=== PATIENT | female | born 1975 | race Caucasian/White ===

== ENCOUNTER → 2019-10-22 13:23 | Outpatient (BNVA) | payer OTHER, SELFPAY | PROVIDERS: Family Provider Nurse Practitioner; PCP Nurse Practitioner; Visit Provider Psychiatry & Neurology Psychiatry | DX: F43.12 Post-traumatic stress disorder, chronic (principal); F12.20 Cannabis dependence, uncomplicated; F33.2 Major depressive disorder, recurrent severe without psychotic features | CPT/HCPCS: 99204 ==

== ENCOUNTER → 2019-12-21 12:33 | Outpatient (BNVA) | payer OTHER, SELFPAY | PROVIDERS: Family Provider Nurse Practitioner; PCP Nurse Practitioner; Visit Provider Counselor Professional | DX: F43.12 Post-traumatic stress disorder, chronic (principal); F33.2 Major depressive disorder, recurrent severe without psychotic features | CPT/HCPCS: 90834 ==

== ENCOUNTER → 2019-12-28 10:05 | Outpatient (BNVA) | payer OTHER, SELFPAY | PROVIDERS: Family Provider Nurse Practitioner; PCP Nurse Practitioner; Visit Provider Counselor Professional | DX: F33.2 Major depressive disorder, recurrent severe without psychotic features (principal); F43.12 Post-traumatic stress disorder, chronic; F12.20 Cannabis dependence, uncomplicated | CPT/HCPCS: 90834 ==

== ENCOUNTER → 2020-01-11 08:08 | Outpatient (BNVA) | payer OTHER, SELFPAY | PROVIDERS: Family Provider Nurse Practitioner; PCP Nurse Practitioner; Visit Provider Counselor Professional | DX: F43.12 Post-traumatic stress disorder, chronic (principal); F12.20 Cannabis dependence, uncomplicated; F33.2 Major depressive disorder, recurrent severe without psychotic features | CPT/HCPCS: 90834 ==

== ENCOUNTER → 2020-01-14 08:23 | Outpatient (BNVA) | payer OTHER, SELFPAY | PROVIDERS: Family Provider Nurse Practitioner; PCP Nurse Practitioner; Visit Provider Psychiatry & Neurology Psychiatry | DX: F43.12 Post-traumatic stress disorder, chronic (principal); F12.20 Cannabis dependence, uncomplicated; F33.2 Major depressive disorder, recurrent severe without psychotic features; F41.1 Generalized anxiety disorder | CPT/HCPCS: 99213 ==

== ENCOUNTER → 2020-01-16 08:30 | Outpatient (BNVA) | payer OTHER, SELFPAY | PROVIDERS: Family Provider Nurse Practitioner; PCP Nurse Practitioner; Visit Provider Counselor Professional | DX: F43.12 Post-traumatic stress disorder, chronic (principal); F12.20 Cannabis dependence, uncomplicated | CPT/HCPCS: 90834 ==

== ENCOUNTER → 2020-01-21 11:53 | Outpatient (BNVA) | payer OTHER, SELFPAY | PROVIDERS: Family Provider Nurse Practitioner; PCP Nurse Practitioner; Visit Provider Nurse Practitioner Family | DX: R05 Cough (principal); J01.40 Acute pansinusitis, unspecified | CPT/HCPCS: 87071; 87400; 87880 ==

== ENCOUNTER → 2020-01-25 07:43 | Outpatient (BNVA) | payer OTHER, SELFPAY | PROVIDERS: Family Provider Nurse Practitioner; PCP Nurse Practitioner; Visit Provider Counselor Professional | DX: F43.12 Post-traumatic stress disorder, chronic (principal); F33.2 Major depressive disorder, recurrent severe without psychotic features; F12.20 Cannabis dependence, uncomplicated | CPT/HCPCS: 90834 ==

== ENCOUNTER → 2020-02-05 08:53 | Outpatient (BNVA) | payer OTHER, SELFPAY | PROVIDERS: Family Provider Nurse Practitioner; PCP Nurse Practitioner; Visit Provider Counselor Professional | DX: F33.2 Major depressive disorder, recurrent severe without psychotic features (principal); F43.12 Post-traumatic stress disorder, chronic | CPT/HCPCS: 90834 ==

== ENCOUNTER → 2020-02-12 08:37 | Outpatient (BNVA) | payer OTHER, SELFPAY | PROVIDERS: Family Provider Nurse Practitioner; PCP Nurse Practitioner; Visit Provider Counselor Professional | DX: F43.12 Post-traumatic stress disorder, chronic (principal) | CPT/HCPCS: 90834 ==

== ENCOUNTER → 2020-02-25 07:46 | Outpatient (BNVA) | payer OTHER, SELFPAY | PROVIDERS: Family Provider Nurse Practitioner; PCP Nurse Practitioner; Visit Provider Psychiatry & Neurology Psychiatry | DX: F43.12 Post-traumatic stress disorder, chronic (principal); F12.20 Cannabis dependence, uncomplicated; F33.2 Major depressive disorder, recurrent severe without psychotic features | CPT/HCPCS: 99214 ==

== ENCOUNTER → 2020-03-12 08:01 | Outpatient (BNVA) | payer OTHER, SELFPAY | PROVIDERS: Family Provider Nurse Practitioner; PCP Nurse Practitioner; Visit Provider Counselor Professional | DX: F33.2 Major depressive disorder, recurrent severe without psychotic features (principal); F43.12 Post-traumatic stress disorder, chronic; F12.20 Cannabis dependence, uncomplicated | CPT/HCPCS: 90834 ==

== ENCOUNTER → 2020-05-07 09:06 | Outpatient (BNVA) | payer OTHER, SELFPAY | PROVIDERS: Family Provider Nurse Practitioner; PCP Nurse Practitioner; Visit Provider Counselor Professional | DX: F43.12 Post-traumatic stress disorder, chronic (principal); F12.20 Cannabis dependence, uncomplicated | CPT/HCPCS: 90834 ==

== ENCOUNTER → 2020-05-23 09:35 | Outpatient (BNVA) | payer OTHER, SELFPAY | PROVIDERS: Family Provider Nurse Practitioner; PCP Nurse Practitioner; Visit Provider Counselor Professional | DX: F12.20 Cannabis dependence, uncomplicated (principal); F43.12 Post-traumatic stress disorder, chronic | CPT/HCPCS: 90832 ==

== ENCOUNTER → 2020-05-30 09:19 | Outpatient (BNVA) | payer OTHER, SELFPAY | PROVIDERS: Family Provider Nurse Practitioner; PCP Nurse Practitioner; Visit Provider Psychiatry & Neurology Psychiatry | DX: F43.12 Post-traumatic stress disorder, chronic (principal); F12.20 Cannabis dependence, uncomplicated; F33.2 Major depressive disorder, recurrent severe without psychotic features; F41.1 Generalized anxiety disorder | CPT/HCPCS: 99213 ==

== ENCOUNTER → 2020-06-23 08:54 | Outpatient (BNVA) | payer OTHER, SELFPAY | PROVIDERS: Family Provider Nurse Practitioner; PCP Nurse Practitioner; Visit Provider Counselor Professional | DX: F43.12 Post-traumatic stress disorder, chronic (principal); F12.20 Cannabis dependence, uncomplicated | CPT/HCPCS: 90834 ==

== ENCOUNTER → 2020-09-08 07:44 | Outpatient (BNVA) | payer OTHER, SELFPAY | PROVIDERS: PCP Nurse Practitioner; Visit Provider Counselor Professional | DX: F43.12 Post-traumatic stress disorder, chronic (principal); F33.2 Major depressive disorder, recurrent severe without psychotic features | CPT/HCPCS: 90834 ==

== ENCOUNTER → 2020-09-30 07:45 | Outpatient (BNVA) | payer OTHER, SELFPAY | PROVIDERS: PCP Nurse Practitioner; Visit Provider Psychiatry & Neurology Psychiatry | DX: F33.2 Major depressive disorder, recurrent severe without psychotic features (principal); F12.20 Cannabis dependence, uncomplicated; F43.12 Post-traumatic stress disorder, chronic | CPT/HCPCS: 99213 ==

== ENCOUNTER → 2020-10-01 09:27 | Outpatient (BNVA) | payer OTHER, SELFPAY | PROVIDERS: PCP Nurse Practitioner; Visit Provider Counselor Professional | DX: F43.12 Post-traumatic stress disorder, chronic (principal); F33.2 Major depressive disorder, recurrent severe without psychotic features; F12.20 Cannabis dependence, uncomplicated | CPT/HCPCS: 90834 ==

== ENCOUNTER → 2020-10-02 08:59 | Outpatient (BNVA) | payer OTHER, SELFPAY | PROVIDERS: PCP Nurse Practitioner; Visit Provider Specialist | DX: M50.020 Cervical disc disorder with myelopathy, mid-cervical region, unspecified level (principal); G43.711 Chronic migraine without aura, intractable, with status migrainosus; J44.9 Chronic obstructive pulmonary disease, unspecified; F17.210 Nicotine dependence, cigarettes, uncomplicated | CPT/HCPCS: 64615; 99213; J0585 ==

== ENCOUNTER → 2020-10-15 08:59 | Outpatient (BNVA) | payer OTHER, SELFPAY | PROVIDERS: PCP Nurse Practitioner; Visit Provider Counselor Professional | DX: F43.12 Post-traumatic stress disorder, chronic (principal); F12.20 Cannabis dependence, uncomplicated | CPT/HCPCS: 90834 ==

== ENCOUNTER → 2020-11-11 07:26 | Outpatient (BNVA) | payer OTHER, SELFPAY | PROVIDERS: PCP Nurse Practitioner; Visit Provider Psychiatry & Neurology Psychiatry | DX: F33.2 Major depressive disorder, recurrent severe without psychotic features (principal); F43.12 Post-traumatic stress disorder, chronic; F12.20 Cannabis dependence, uncomplicated | CPT/HCPCS: 99213 ==

== ENCOUNTER 2020-11-11 08:43 | Outpatient (CLI) | payer OTHER, SELFPAY ==
--- NOTE | 2020-11-11 08:48 | MM_ITS ---
WS: [id number] SCREENING DIGITAL MAMMOGRAM WITH CAD HISTORY: SCREENING COMPARISON: 03/28/2019 and 12/19/2017 and 03/11/2010 Bilateral CC and MLO views submitted. Computer aided detection analyzed. Breast composition: There are scattered areas of fibroglandular density. No suspicious masses, microc alcifications or architectural distortion. Benign calcifications in each breast. MM/[place] [id number] IMPRESSION: BI-RADS: 2-Benign FOLLOW UP: 1 Year Follow-up
== END 2020-11-11 08:44 | disposition home or self-care (01) ==
LOC: RADSHAW 08:45
PROVIDERS: PCP Nurse Practitioner; Visit Provider Nurse Practitioner
DX: Z12.31 Encounter for screening mammogram for malignant neoplasm of breast (principal)
CPT/HCPCS: 77067

== ENCOUNTER → 2020-11-19 08:33 | Outpatient (BNVA) | payer OTHER, SELFPAY | PROVIDERS: PCP Nurse Practitioner; Visit Provider Counselor Professional | DX: F43.12 Post-traumatic stress disorder, chronic (principal); F12.20 Cannabis dependence, uncomplicated; F33.2 Major depressive disorder, recurrent severe without psychotic features | CPT/HCPCS: 90834 ==

== ENCOUNTER → 2020-12-10 08:31 | Outpatient (BNVA) | payer OTHER, SELFPAY | PROVIDERS: PCP Nurse Practitioner; Visit Provider Counselor Professional | DX: F43.12 Post-traumatic stress disorder, chronic (principal); F12.20 Cannabis dependence, uncomplicated | CPT/HCPCS: 90834 ==

== ENCOUNTER → 2021-01-06 09:43 | Outpatient (BNVA) | payer OTHER, SELFPAY | PROVIDERS: PCP Nurse Practitioner; Visit Provider Counselor Professional | DX: F43.12 Post-traumatic stress disorder, chronic (principal); F12.20 Cannabis dependence, uncomplicated | CPT/HCPCS: 90834 ==

== ENCOUNTER → 2021-01-08 09:58 | Outpatient (BNVA) | payer OTHER, SELFPAY | PROVIDERS: PCP Nurse Practitioner; Visit Provider Specialist | DX: G43.711 Chronic migraine without aura, intractable, with status migrainosus (principal); F17.210 Nicotine dependence, cigarettes, uncomplicated | CPT/HCPCS: 64615; J0585 ==

== ENCOUNTER → 2021-01-12 11:01 | Outpatient (BNVA) | payer OTHER, SELFPAY | PROVIDERS: PCP Nurse Practitioner; Visit Provider Counselor Professional | DX: F43.12 Post-traumatic stress disorder, chronic (principal) | CPT/HCPCS: 90834 ==

== ENCOUNTER → 2021-02-06 09:41 | Outpatient (BNVA) | payer OTHER, SELFPAY | PROVIDERS: PCP Nurse Practitioner; Visit Provider Psychiatry & Neurology Psychiatry | DX: F43.12 Post-traumatic stress disorder, chronic (principal); F12.20 Cannabis dependence, uncomplicated; F33.2 Major depressive disorder, recurrent severe without psychotic features | CPT/HCPCS: 99213 ==

== ENCOUNTER → 2021-04-20 14:35 | Outpatient (BNVA) | payer OTHER, SELFPAY | PROVIDERS: PCP Nurse Practitioner; Referring Provider Nurse Practitioner; Visit Provider Nurse Practitioner Family | DX: N31.9 Neuromuscular dysfunction of bladder, unspecified (principal); N39.46 Mixed incontinence; Z87.440 Personal history of urinary (tract) infections | CPT/HCPCS: 81003 ==

== ENCOUNTER → 2021-05-26 13:48 | Outpatient (BNVA) | payer OTHER, SELFPAY | PROVIDERS: PCP Nurse Practitioner; Visit Provider Nurse Practitioner Family | DX: Z87.440 Personal history of urinary (tract) infections (principal); N39.46 Mixed incontinence; N39.0 Urinary tract infection, site not specified | CPT/HCPCS: 81003; 87077; 87086; 87184 ==

== ENCOUNTER → 2021-05-28 11:36 | Outpatient (BNVA) | payer OTHER, SELFPAY | PROVIDERS: PCP Nurse Practitioner; Visit Provider Specialist | DX: G43.711 Chronic migraine without aura, intractable, with status migrainosus (principal) | CPT/HCPCS: 64615; J0585 ==

== ENCOUNTER → 2021-07-28 10:40 | Outpatient (BNVA) | payer OTHER, SELFPAY | PROVIDERS: PCP Nurse Practitioner; Visit Provider Psychiatry & Neurology Psychiatry | DX: F33.2 Major depressive disorder, recurrent severe without psychotic features (principal); F12.20 Cannabis dependence, uncomplicated; F43.12 Post-traumatic stress disorder, chronic; F41.1 Generalized anxiety disorder | CPT/HCPCS: 99214 ==

== ENCOUNTER 2021-08-06 23:57 | Emergency (ER) | payer OTHER, MEDICARE, SELFPAY ==
[2021-08-07 00:08] VITALS: RESP 16; TEMP 36.6; BMI 33.8
[2021-08-07 00:17] VITALS: BP 87/54; PULSE 89; RESP 18; O2SAT 88
--- NOTE | 2021-08-07 00:34 | XRR_ITS ---
PROCEDURE INFORMATION: Exam: XR Chest Exam date and time: 08/07/2021 12:34 AM Age: 46 years old Clinical indication: Other: Syncope; Prior surgery; Surgery type: Stimulator; Additional info: Syncopal episode TECHNIQUE: Imaging protocol: XR of the chest. Views: 1 view. COMPARISON: CR Chest 1 [place] [id number] 06/28/2019 8:27 PM FINDINGS: Tubes, catheters and devices: Spinal cord stimulator leads overlie the thoracic spine. Lungs: Unremarkable. No consolidation. Pleural spaces: Unremarkable. No pleural effusion. No pneumothorax. Heart/Mediastinum: Unremarkable. No cardiomegaly. Bones/joints: Unremarkable. XR/XR chest 1V portable [id number] IMPRESSION: No acute disease. Radiation Dose CTDIVOL = (mGy): DLP = (mGy-cm)
--- NOTE | 2021-08-07 00:34 | CTR_ITS ---
PROCEDURE INFORMATION: Exam: CT Head Without Contrast Exam date and time: 08/07/2021 12:34 AM Age: 46 years old Clinical indication: Syncope and collapse; Patient HX: Syncopal episode. Lethargy. Unable to remove earrings. TECHNIQUE: Imaging protocol: Computed tomography of the head without contrast. Radiation optimization: All CT scans at this facility use at least one of these dose optimization techniques: automated exposure control; mA and/or kV adjustment per patient size (includes targeted exams where dose is matched to clinical indication); or iterative reconstruction. COMPARISON: MRI Head w/wo* [id number] 06/17/2017 2:44 PM RADIATION DOSE METRICS: Total DLP (mGy-cm): 898.43 FINDINGS: Brain: No acute infarct or hemorrhage. Cerebral ventricles: No ventriculomegaly. Paranasal sinuses: There is a left maxillary sinus mucous retention cyst. Mastoid air cells: Visualized mastoid air cells are clear. Bones/joints: No calvarial or skull base fracture. Soft tissues: Unremarkable. Other findings: The examination is limited by patient motion. CT/CT head wo con* [id number] IMPRESSION: 1. The examination is limited by patient motion. 2. No acute infarct or hemorrhage. 3. No calvarial or skull base fracture. Radiation Dose CTDIVOL = (mGy): DLP = 898.43 (mGy-cm)
--- NOTE | 2021-08-07 00:36 | W.ED.GENADLT ---
Documented by User: AKUA Sinclair 08/07/21 03:29 HPI - General Adult General: Chief complaint: General Medical Stated complaint: CANT STAY AWAKE Time Seen by Provider: 08/07/21 00:17 History of Present Illness: HPI narrative: Patient is a 46-year-old female comes to the ED with syncopal episode. Past medical history of COPD, migraines and GERD. Patient is not on any oxygen at home. Tonight patient says she was standing doing some dishes and she started to feel real dizzy and then had a syncopal episode. Friend was present and actually helped patient down to the ground so she did not fall. No head trauma occurred during syncopal episode. Patient says she was able to hear her friend talking to her while she was having her syncopal episode. She did not have any convulsions, but did have some bladder incontinence during episode. She reports feeling really tired now. This is the third syncopal episode patient has had in the last 2 months. She had one approximately 6 weeks ago and another one that was similar a couple weeks ago. Denies any chest pain but does endorse some shortness of breath during episodes. She currently has a headache that feels similar to her migraines. Denies any fever, chills chest pain, nausea/vomiting, abdominal pain, bladder or bowel symptoms. Patient was recently put on an antibiotic to treat a UTI. Patient is a daily smoker. Associated symptoms: Reports dyspnea (episodic during syncopal episode), headache(s) and syncope; Deny chest pain, nausea, rash, palpitations or vomiting Review of Systems Const: Reports: fatigue; Denies: fever(s) or chills Eyes: Denies: change in vision or eye discomfort ENMT: Denies: throat pain, odynophagia, nasal discharge or nasal congestion Card: Reports: syncope; Denies: chest pain, palpitations, edema, swelling of feet/ankles, dyspnea on exertion or orthopnea Resp: Reports: dyspnea (episodic during syncopal episode); Denies: productive cough or non-productive cough GI: Denies: abdominal pain, nausea, vomiting, diarrhea, constipation or hematochezia : Denies: flank pain, dysuria or hematuria Musc: Denies: neck pain, back pain or extremity swelling Skin/Breast: Denies: rash or new lesions Neuro: Reports: headache(s); Denies: numbness in extremities or weakness in extremities PFSH ED PFSH: Medical History Cancer Cervical disc disorder with myelopathy of mid-cervical region COPD (chronic obstructive pulmonary disease) DDD (degenerative disc disease) DJD (degenerative joint disease) Mixed stress and urge urinary incontinence Psychiatric care Recurrent UTI Spondylolisthesis, acquired Surgical History History of appendectomy History of foot surgery Left foot. Five (5) surgeries. History of hysterectomy Family History Grandmother Cancer Father , IN HIS 50'S Hypertension Mother , AT 42 Heart disease Psychiatric illness CHF (congestive heart failure) Brother Heart disease Social History Alcohol intake: never Marital status: Legally Current occupational status: retired and disabled History of recent travel: No Physical Exam Const: COMMON NORMALS: patient oriented x3 and alert GENERAL APPEARANCE: cooperative, comfortable and lethargic ORIENTATION/CONSCIOUSNESS: Yes lethargic HENMT: COMMON NORMALS: normocephalic HEAD & SCALP: normocephalic MOUTH: Normal oral and palatal mucosa present THROAT: posterior oropharynx normal and uvula midline Eye: COMMON NORMALS: Equal, round and reactive pupils present, EOMs intact bilaterally and conjunctivae normal CONJUNCTIVA: Yes conjunctivae normal PUPIL: Yes Equal, round and reactive pupils present Neck/C-Spine: COMMON NORMALS: supple GENERAL: Yes normal visual inspection Resp: COMMON NORMALS: normal respiratory effort, No retractions, No use of accessory muscles and clear to auscultation bilaterally AUSCULTATION: clear to auscultation bilaterally Cardio: COMMON NORMALS: regular rate, regular rhythm, S1 normal heart sound present, S2 normal heart sound present, No gallops present (Cardio), No clicks present (Cardio), No murmurs present (Cardio) and Peripheral pulses 2+ throughout RATE: regular rate RHYTHM: regular rhythm HEART SOUNDS: S1 normal heart sound present and S2 normal heart sound present PERIPHERAL PULSES: Peripheral pulses 2+ throughout GI: COMMON NORMALS: Normal to inspection, nondistended, normoactive bowel sounds present, Soft to palpation, non-tender and no masses PALPATION: Yes Soft to palpation : COMMON NORMALS: Yes no CVA tenderness BLADDER/KIDNEY EXAM: Yes no CVA tenderness Back/Pelvis: COMMON NORMALS: no CVA tenderness Extremity: COMMON NORMALS: normal to inspection Neuro: COMMON NORMALS: patient oriented x3, CN's II-XII intact bilaterally and moves all extremities SENSORIUM/ORIENTATION: Yes alert and Yes lethargic Skin: GENERAL SKIN EXAM: dry skin Course ED course: I went in and talked with patient about some of the lab findings and the elevated carboxyhemoglobin lab. Patient's sister is present and she lives in the same house this patient. Sister has not had any symptoms such as headache, dizziness, confusion, loss of consciousness, shortness of breath, nausea/vomiting. I recommended that sister checks to see if they have a carbon monoxide detector at home and if they do not for her to purchase want to install on home. Vital Signs: Vital signs: Vital Signs Temperature 97.9 F 08/07/21 00:08 Pulse Rate 89 08/07/21 00:17 Respiratory Rate 18 08/07/21 00:17 Blood Pressure 114/72 08/07/21 03:32 Pulse Oximetry 88 L 08/07/21 00:17 MDM - General Adult MDM Narrative: Medical decision making narrative: Patient is a 46-year-old female comes to the ED with syncopal episode and tired/lethargic post syncopal episode. I performed the initial history physical exam and lab work-up. I talked with Dr. Matamoros about patient case and he will be taking over patient case since I am at end of my shift. He is aware of patient's elevated carboxyhemoglobin level and that I discussed with the patient and sister about risk of car monoxide poisoning and sister who lives at the house does not have any symptoms. Home O2 eval ordered and pending. Dr. Matamoros accepted further management care of patient. Lab Data: Attestation: I reviewed the patient's lab results. Labs: Lab Results 08/06/21 08/06/21 08/06/21 23:03 23:03 23:03 WBC 11.5 10^3/uL H 10 ^3/uL (4.0-10.0) RBC 4.33 10^6/uL 10^6 /uL (4.1-5.3) Hgb 12.9 g/dL g/dL (11.5-15.3) Hct 38.9 % % (37.0-47.0) MCV 89.8 fl fl (81-99) MCH 29.8 pg pg (28.0-34.0) MCHC 33.2 g/dL g/dL (30.0-36.0) RDW 12.9 % % (12.1-15.1) Plt Count 305 10^3/cmm 10^3 /cmm (130-400) MPV 9.2 fL fL (7.4-10.4) Neut % (Auto) 60.6 % % Lymph % (Auto) 30.1 % % [place] % (Auto) 4.9 % % Eos % (Auto) 3.4 % % Baso % (Auto) 0.8 % % Neut # (Auto) 7.00 10^3/uL 10^3 /uL (1.8-7.7) Lymph # (Auto) 3.5 10^3/uL 10^3/ uL (0.8-4.8) [place] # (Auto) 0.6 10^3/uL 10^3/ uL (0.2-0.9) Eos # (Auto) 0.4 10^3/uL 10^3/ uL (0.0-0.8) Baso # (Auto) 0.1 10^3/uL 10^3/ uL (0.0-0.1) Nucleated RBC % (a uto) 0 % % Nucleated RBCs # 0.0 /100WBC /100W BC Specimen Type Sample Site ABG pH ABG pCO2 ABG pO2 ABG HCO3 ABG O2 Saturation ABG Base Excess Kavon Test A-a O2 Gradient Hematocrit Hgb O2 Saturation Carboxyhemoglobin Methemoglobin Total Hemoglobin Ionized Calcium O2 Delivery Device O2 Liters/Min FiO2 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 Welfare Services ID Sodium 137 mmol/L mmol/L (136-145) Potassium 3.2 mmol/L L mmol /L (3.5-5.1) Chloride 96 mmol/L L mmol/ L (98-107) Carbon Dioxide 24 mmol/L mmol/L (22-29) Anion Gap 20.2 H (5-19) BUN 10 mg/dL mg/dL (6-20) Creatinine 0.8 mg/dL mg/dL (0.5-0.9) GFR Calculation 76.6 mL/min L mL/ min (90-130) Glucose 133 mg/dL H mg/dL (65-115) Calculated Osmolal ity 285 mOsm/kg mOsm/ kg (285-295) Lactic Acid Calcium 8.8 mg/dL mg/dL (8.5-10.5) Total Bilirubin 0.4 mg/dL mg/dL (0.15-1.2) AST 21 U/L U/L (0-32) ALT 26 U/L U/L (0-33) Alkaline Phosphata se 73 IU/L IU/L (35-105) Troponin T Baselin e 7 ng/L ng/L (0-10) Troponin T 120 Min [place] Delta Troponin T Total Protein 6.6 g/dL g/dL (6.6-8.7) Albumin 4.2 g/dL g/dL (3.5-5.2) Globulin 2.4 g/dL g/dL (1.3-4.6) Urine Color Urine Appearance Urine pH Ur Specific Gravit y Urine Protein Urine Glucose (UA) Urine Ketones Urine Blood Urine Nitrate Urine Bilirubin Urine Urobilinogen Ur Leukocyte Donya ase Urine Opiates Scre en Ur Barbiturates Sc reen Ur Phencyclidine S crn Ur Amphetamines Sc reen U Benzodiazepines Scrn Urine Cocaine Scre en U Marijuana (THC) Screen Ethyl Alcohol < 10 mg/dL mg/dL (0-10) 08/07/21 08/07/21 08/07/21 02:04 02:51 02:51 WBC RBC Hgb Hct MCV MCH MCHC RDW Plt Count MPV Neut % (Auto) Lymph % (Auto) [place] % (Auto) Eos % (Auto) Baso % (Auto) Neut # (Auto) Lymph # (Auto) [place] # (Auto) Eos # (Auto) Baso # (Auto) Nucleated RBC % (a uto) Nucleated RBCs # Specimen Type Arterial Sample Site Radial, left ABG pH 7.37 (7.35-7.45) ABG pCO2 49.8 mmHg H mmHg (35-45) ABG pO2 61.5 mmHg L mmHg (80.0-100.0) ABG HCO3 29.0 mmol/L H mmo l/L (22-26) ABG O2 Saturation 93.0 ABG Base Excess 2.9 mmol/L H mmol /L (-2.0-2.0) Kavon Test Pos A-a O2 Gradient 10.5 mmHg H mmHg (5-10) Hematocrit 37.9 % % (37-47) Hgb O2 Saturation 85.5 % L % (95-100) Carboxyhemoglobin 7.4 %THgb %THgb (0.4-20.1) Methemoglobin 0.7 % % (0.4-1.5) Total Hemoglobin 12.4 g/dL g/dL (12-16) Ionized Calcium 1.2 mmol/L mmol/L (1.1-1.4) O2 Delivery Device Nc O2 Liters/Min 2.0 % % FiO2 28.0 % % 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 Welfare Services ID glc Sodium 139.0 mmol/L mmol /L (131-143) Potassium 3.7 mmol/L mmol/L (3.5-5.0) Chloride Carbon Dioxide Anion Gap BUN Creatinine GFR Calculation Glucose 132.0 mg/dL H mg/ dL (70-115) Calculated Osmolal ity Lactic Acid 0.9 mmol/L mmol/L (0.5-2.2) Calcium Total Bilirubin AST ALT Alkaline Phosphata se Troponin T Baselin e Troponin T 120 Min [place] 7.67 ng/L ng/L (0-10) Delta Troponin T 0.67 ABS# ABS# (0-10) Total Protein Albumin Globulin Urine Color Urine Appearance Urine pH Ur Specific Gravit y Urine Protein Urine Glucose (UA) Urine Ketones Urine Blood Urine Nitrate Urine Bilirubin Urine Urobilinogen Ur Leukocyte Donya ase Urine Opiates Scre en Ur Barbiturates Sc reen Ur Phencyclidine S crn Ur Amphetamines Sc reen U Benzodiazepines Scrn Urine Cocaine Scre en U Marijuana (THC) Screen Ethyl Alcohol 08/07/21 08/07/21 03:00 03:00 WBC RBC Hgb Hct MCV MCH MCHC RDW Plt Count MPV Neut % (Auto) Lymph % (Auto) [place] % (Auto) Eos % (Auto) Baso % (Auto) Neut # (Auto) Lymph # (Auto) [place] # (Auto) Eos # (Auto) Baso # (Auto) Nucleated RBC % (a uto) Nucleated RBCs # Specimen Type Sample Site ABG pH ABG pCO2 ABG pO2 ABG HCO3 ABG O2 Saturation ABG Base Excess Kavon Test A-a O2 Gradient Hematocrit Hgb O2 Saturation Carboxyhemoglobin Methemoglobin Total Hemoglobin Ionized Calcium O2 Delivery Device O2 Liters/Min FiO2 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 Welfare Services ID Sodium Potassium Chloride Carbon Dioxide Anion Gap BUN Creatinine GFR Calculation Glucose Calculated Osmolal ity Lactic Acid Calcium Total Bilirubin AST ALT Alkaline Phosphata se Troponin T Baselin e Troponin T 120 Min [place] Delta Troponin T Total Protein Albumin Globulin Urine Color Yellow (Yellow) Urine Appearance Clear (CLEAR) Urine pH 5 (5-7) Ur Specific Gravit y 1.005 (1.005-1.030) Urine Protein Neg (Negative) Urine Glucose (UA) Norm (Normal) Urine Ketones Negative (Negative) Urine Blood Neg (Negative) Urine Nitrate Negative (Negative) Urine Bilirubin Neg (Negative) Urine Urobilinogen Neg mg/dL mg/dL (Negative) Ur Leukocyte Donya ase Negative (Negative) Urine Opiates Scre en Negative ng/mL ng /mL (Negative) Ur Barbiturates Sc reen Negative ng/mL ng /mL (Negative) Ur Phencyclidine S crn Negative ng/mL ng /mL (Negative) Ur Amphetamines Sc reen Negative ng/mL ng /mL (Negative) U Benzodiazepines Scrn Negative ng/mL ng /mL (Negative) Urine Cocaine Scre en Negative ng/mL ng /mL (Negative) U Marijuana (THC) Screen Positive ng/mL H ng/mL (Negative) Ethyl Alcohol Imaging Data^: CT Head: Attestation: I personally reviewed and interpreted this imaging study as follows: Radiologist's impression: [address] [address] [address] Scan Report Signed Patient: Keyanna Thomas Unit #: [id number] : 1975 Age/Sex: 46 / F ADM Date: 08/06/21 Loc: ER Room/Bed: Attending Dr: Ordering Provider/Ordering MD: Gilmer Zurita Date of Service: 08/07/21 Procedure(s): CT head wo con* [id number] Accession Number(s): [id number] Report Number: [id number] PROCEDURE INFORMATION: Exam: CT Head Without Contrast Exam date and time: 08/07/2021 12:34 AM Age: 46 years old Clinical indication: Syncope and collapse; Patient HX: Syncopal episode. Lethargy. Unable to remove earrings. TECHNIQUE: Imaging protocol: Computed tomography of the head without contrast. Radiation optimization: All CT scans at this facility use at least one of these dose optimization techniques: automated exposure control; mA and/or kV adjustment per patient size (includes targeted exams where dose is matched to clinical indication); or iterative reconstruction. COMPARISON: MRI Head w/wo* [id number] 06/17/2017 2:44 PM RADIATION DOSE METRICS: Total DLP (mGy-cm): 898.43 FINDINGS: Brain: No acute infarct or hemorrhage. Cerebral ventricles: No ventriculomegaly. Paranasal sinuses: There is a left maxillary sinus mucous retention cyst. Mastoid air cells: Visualized mastoid air cells are clear. Bones/joints: No calvarial or skull base fracture. Soft tissues: Unremarkable. Other findings: The examination is limited by patient motion. CT/CT head wo con* [id number] IMPRESSION: 1. The examination is limited by patient motion. 2. No acute infarct or hemorrhage. 3. No calvarial or skull base fracture. Radiation Dose CTDIVOL = (mGy): DLP = 898.43 (mGy-cm) Dictated By: Alvino Fofana Signed By: Alvino Fofana Signed Date/Time: 08/07/21 0132 DD/ CXR: Attestation: I personally reviewed and interpreted this imaging study as follows: Radiologist's impression: [address] [address] XRay Report Signed Patient: Keyanna Thomas Unit #: [id number] : 1975 Age/Sex: 46 / F ADM Date: 08/06/21 Loc: ER Room/Bed: Attending Dr: Ordering Provider/Ordering MD: Gilmer Zurita Date of Service: 08/07/21 Procedure(s): XR chest 1V portable [id number] Accession Number(s): [id number] Report Number: [id number] PROCEDURE INFORMATION: Exam: XR Chest Exam date and time: 08/07/2021 12:34 AM Age: 46 years old Clinical indication: Other: Syncope; Prior surgery; Surgery type: Stimulator; Additional info: Syncopal episode TECHNIQUE: Imaging protocol: XR of the chest. Views: 1 view. COMPARISON: CR Chest 1 [place] [id number] 06/28/2019 8:27 PM FINDINGS: Tubes, catheters and devices: Spinal cord stimulator leads overlie the thoracic spine. Lungs: Unremarkable. No consolidation. Pleural spaces: Unremarkable. No pleural effusion. No pneumothorax. Heart/Mediastinum: Unremarkable. No cardiomegaly. Bones/joints: Unremarkable. XR/XR chest 1V portable [id number] IMPRESSION: No acute disease. Radiation Dose CTDIVOL = (mGy): DLP = (mGy-cm) Dictated By: Alvino Fofana Signed By: Alvino Fofana Signed Date/Time: 08/07/21129 DD/ EKG Data^: EKG 1: Computer generated interpretation: Chest X-Ray 08/07/21 00:34 IMPRESSION: No acute disease. Radiation Dose CTDIVOL = (mGy): DLP = (mGy-cm) Head CT 08/07/21 00:34 IMPRESSION: 1. The examination is limited by patient motion. 2. No acute infarct or hemorrhage. 3. No calvarial or skull base fracture. Radiation Dose CTDIVOL = (mGy): DLP = 898.43 (mGy-cm) Discharge Plan Discharge Prescriptions: No Action albuterol sulfate 0.63 mg/3 mL solution for nebulization 0.63 mg INHALATION QID PRNRF: 0 albuterol sulfate 90 mcg/actuation aerosol powdr breath activated 2 inh INHALATION Q6H PRNRF: 0 Adult Probiotic 3 billion cell capsule 3,000 mmu cells PO DAILY RF: 0 glucosamine sulfate 500 mg tablet 500 mg PO DAILY RF: 0 B-complex with vitamin C [Super B Complex-Vitamin C] Tablet 1 tab PO DAILY RF: 0 magnesium 250 mg tablet 250 mg PO DAILY RF: 0 omega-3 fatty acids 500 mg capsule 500 mg PO DAILY RF: 0 ascorbic acid (vitamin C) 500 mg capsule, extended release 180 mg PO DAILY RF: 0 biotin 1,000 mcg tablet,chewable 1,000 mcg PO DAILY RF: 0 MCT Oil 14 gram-120 kcal/15 mL oil 15 ml PO DAILY RF: 0 estrada pxid-lhscvpie-lcdtslzng ac 1,000 mg capsule 1 cap PO DAILY RF: 0 rutin 500 mg tablet 500 mg PO DAILY RF: 0 ginseng 100 mg capsule 250 mg PO DAILY RF: 0 medical marijuana See Rx Instructions inhalation .COMPLEX RF: 0 (DME) Spinal cord stimulator 0 .Route .MEDSUPPLY RF: 0 cyanocobalamin (vitamin B-12) 1,000 mcg capsule 1,000 mcg PO DAILY RF: 0 pantoprazole 20 mg tablet,delayed release (DR/EC) 20 mg PO DAILY RF: 0 trospium 20 mg tablet 20 mg PO BID RF: 0 amitriptyline 10 mg tablet 20 mg PO .HS RF: 0 All Day Allergy (cetirizine) 10 mg capsule 10 mg PO .HS RF: 0 cholecalciferol (vitamin D3) 4,000 unit capsule 1,000 unit PO DAILY RF: 0 methocarbamol 500 mg tablet 1,000 mg PO QID RF: 0 meloxicam 7.5 mg tablet 15 mg PO .AM RF: 0 atorvastatin 10 mg tablet 80 mg PO .HS RF: 0 gabapentin 100 mg capsule 1,200 mg PO TID RF: 0 nitrofurantoin monohyd/m-cryst [Macrobid] 100 mg capsule 100 mg PO BID Qty: 28 RF: 2 hydroxyzine HCl 50 mg tablet 50 mg PO QID PRN (Reason: insomnia/anxiety) Qty: 120 RF: 2 buspirone 5 mg tablet 5 mg PO TID Qty: 90 RF: 2 lamotrigine 200 mg tablet 200 mg PO .HS Qty: 30 RF: 2 prazosin 2 mg capsule 4 mg PO .HS Qty: 60 RF: 2 ziprasidone HCl 80 mg capsule 80 mg PO BID Qty: 60 RF: 2 Coding Level of Care Code ED 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 Documented by User: Francine Matamoros MD 08/07/21 04:05 HPI - General Adult General: Chief complaint: General Medical Stated complaint: CANT STAY AWAKE Time Seen by Provider: 08/07/21 00:17 PFS ED PFSH: Medical History Cancer Cervical disc disorder with myelopathy of mid-cervical region COPD (chronic obstructive pulmonary disease) DDD (degenerative disc disease) DJD (degenerative joint disease) Mixed stress and urge urinary incontinence Psychiatric care Recurrent UTI Spondylolisthesis, acquired Surgical History History of appendectomy History of foot surgery Left foot. Five (5) surgeries. History of hysterectomy Family History Grandmother Cancer Father , IN HIS 50'S Hypertension Mother , AT 42 Heart disease Psychiatric illness CHF (congestive heart failure) Brother Heart disease Social History Alcohol intake: never Marital status: Legally Current occupational status: retired and disabled History of recent travel: No Course Vital Signs: Vital signs: Vital Signs Temperature 97.9 F 08/07/21 00:08 Pulse Rate 89 08/07/21 00:17 Respiratory Rate 18 08/07/21 00:17 Blood Pressure 114/72 08/07/21 03:32 Pulse Oximetry 88 L 08/07/21 00:17 MDM - General Adult MDM Narrative: Medical decision making narrative: Her neurological exam is as follwoed Mental status? Awake, alert, and oriented to self, year, month, location, and situation.? Following simple axial and appendicular commands.? Has appropriate fund of knowledge, comprehension, and insight.? Able to recall and understands pertinent aspects of medical history and current treatment status.? ? Language? Speech is fluent without word-finding difficulties.? Intact naming, expression, part time receptionist, and repetition.? ? Cranial nerves? 2,3,4,6: PERRL, EOMI with no nystagmus. 5: Intact sensation to light touch, symmetric? 7: Smile symmetrical, no facial droop.? 8: Hearing grossly intact.? 9,10: Normal palate movement.? 11: Normal strength in trapezius bilaterally 12: Tongue protrudes midline.? ? Motor examination? Normal bulk & tone. Strength as follows (R/L): Delts (5/5), Biceps (5/5), Triceps (5/5), Wrist ext (5/5), hip flexors (5/5), plantarflexors (5/5), dorsiflexors (5/5). ? Sensation? Light Touch: Grossly intact and equal in upper and lower extremities bilaterally? Romberg: Negative.? Distal joint position sense intact ? Coordination? Uupypm-yo-eydb-finger movements intact without dysmetria or past-pointing.? Rapid fingertaps: preserved amplitude without decriment.? No tremor, myoclonus or truncal ataxia.? ? Gait/stance? Steady, normal narrow base gait with appropriate arm swing and turning.? Tandem gait without hesitation or loss of balance. At 4:04am aspiratory therapy came by to do an assessment, patient was observed to be satting greater than 95%. At the present time, patient reports symptomatic improvement after 2 L of fluid. Patient has no risk factor for posterior fossa pathology at this time. No need for CT evaluation. Troponin x2 within normal limit. At the present time, I do not suspect that there is a cardiac causes of patient's lightheadedness. It is unclear why patient had an O2 sat of 88% on 2 L earlier today. However, patient continues to sat persistently greater than 95% on room air currently after period of observation. Disposition: Discharge. Patient counseled regarding diagnostic impression, treatment plan. Patient given ED strict return precautions to return for continuation, worsening, or development of new symptoms. Instructed to f/u w/ PCP regarding symptoms today. Patient verbalized understanding. Lab Data: Labs: Lab Results 08/06/21 08/06/21 08/06/21 23:03 23:03 23:03 WBC 11.5 10^3/uL H 10 ^3/uL (4.0-10.0) RBC 4.33 10^6/uL 10^6 /uL (4.1-5.3) Hgb 12.9 g/dL g/dL (11.5-15.3) Hct 38.9 % % (37.0-47.0) MCV 89.8 fl fl (81-99) MCH 29.8 pg pg (28.0-34.0) MCHC 33.2 g/dL g/dL (30.0-36.0) RDW 12.9 % % (12.1-15.1) Plt Count 305 10^3/cmm 10^3 /cmm (130-400) MPV 9.2 fL fL (7.4-10.4) Neut % (Auto) 60.6 % % Lymph % (Auto) 30.1 % % [place] % (Auto) 4.9 % % Eos % (Auto) 3.4 % % Baso % (Auto) 0.8 % % Neut # (Auto) 7.00 10^3/uL 10^3 /uL (1.8-7.7) Lymph # (Auto) 3.5 10^3/uL 10^3/ uL (0.8-4.8) [place] # (Auto) 0.6 10^3/uL 10^3/ uL (0.2-0.9) Eos # (Auto) 0.4 10^3/uL 10^3/ uL (0.0-0.8) Baso # (Auto) 0.1 10^3/uL 10^3/ uL (0.0-0.1) Nucleated RBC % (a uto) 0 % % Nucleated RBCs # 0.0 /100WBC /100W BC Specimen Type Sample Site ABG pH ABG pCO2 ABG pO2 ABG HCO3 ABG O2 Saturation ABG Base Excess Kavon Test A-a O2 Gradient Hematocrit Hgb O2 Saturation Carboxyhemoglobin Methemoglobin Total Hemoglobin Ionized Calcium O2 Delivery Device O2 Liters/Min FiO2 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 Welfare Services ID Sodium 137 mmol/L mmol/L (136-145) Potassium 3.2 mmol/L L mmol /L (3.5-5.1) Chloride 96 mmol/L L mmol/ L (98-107) Carbon Dioxide 24 mmol/L mmol/L (22-29) Anion Gap 20.2 H (5-19) BUN 10 mg/dL mg/dL (6-20) Creatinine 0.8 mg/dL mg/dL (0.5-0.9) GFR Calculation 76.6 mL/min L mL/ min (90-130) Glucose 133 mg/dL H mg/dL (65-115) Calculated Osmolal ity 285 mOsm/kg mOsm/ kg (285-295) Lactic Acid Calcium 8.8 mg/dL mg/dL (8.5-10.5) Total Bilirubin 0.4 mg/dL mg/dL (0.15-1.2) AST 21 U/L U/L (0-32) ALT 26 U/L U/L (0-33) Alkaline Phosphata se 73 IU/L IU/L (35-105) Troponin T Baselin e 7 ng/L ng/L (0-10) Troponin T 120 Min [place] Delta Troponin T Total Protein 6.6 g/dL g/dL (6.6-8.7) Albumin 4.2 g/dL g/dL (3.5-5.2) Globulin 2.4 g/dL g/dL (1.3-4.6) Urine Color Urine Appearance Urine pH Ur Specific Gravit y Urine Protein Urine Glucose (UA) Urine Ketones Urine Blood Urine Nitrate Urine Bilirubin Urine Urobilinogen Ur Leukocyte Donya ase Urine Opiates Scre en Ur Barbiturates Sc reen Ur Phencyclidine S crn Ur Amphetamines Sc reen U Benzodiazepines Scrn Urine Cocaine Scre en U Marijuana (THC) Screen Ethyl Alcohol < 10 mg/dL mg/dL (0-10) 08/07/21 08/07/21 08/07/21 02:04 02:51 02:51 WBC RBC Hgb Hct MCV MCH MCHC RDW Plt Count MPV Neut % (Auto) Lymph % (Auto) [place] % (Auto) Eos % (Auto) Baso % (Auto) Neut # (Auto) Lymph # (Auto) [place] # (Auto) Eos # (Auto) Baso # (Auto) Nucleated RBC % (a uto) Nucleated RBCs # Specimen Type Arterial Sample Site Radial, left ABG pH 7.37 (7.35-7.45) ABG pCO2 49.8 mmHg H mmHg (35-45) ABG pO2 61.5 mmHg L mmHg (80.0-100.0) ABG HCO3 29.0 mmol/L H mmo l/L (22-26) ABG O2 Saturation 93.0 ABG Base Excess 2.9 mmol/L H mmol /L (-2.0-2.0) Kavon Test Pos A-a O2 Gradient 10.5 mmHg H mmHg (5-10) Hematocrit 37.9 % % (37-47) Hgb O2 Saturation 85.5 % L % (95-100) Carboxyhemoglobin 7.4 %THgb %THgb (0.4-20.1) Methemoglobin 0.7 % % (0.4-1.5) Total Hemoglobin 12.4 g/dL g/dL (12-16) Ionized Calcium 1.2 mmol/L mmol/L (1.1-1.4) O2 Delivery Device Nc O2 Liters/Min 2.0 % % FiO2 28.0 % % 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 Welfare Services ID glc Sodium 139.0 mmol/L mmol /L (131-143) Potassium 3.7 mmol/L mmol/L (3.5-5.0) Chloride Carbon Dioxide Anion Gap BUN Creatinine GFR Calculation Glucose 132.0 mg/dL H mg/ dL (70-115) Calculated Osmolal ity Lactic Acid 0.9 mmol/L mmol/L (0.5-2.2) Calcium Total Bilirubin AST ALT Alkaline Phosphata se Troponin T Baselin e Troponin T 120 Min [place] 7.67 ng/L ng/L (0-10) Delta Troponin T 0.67 ABS# ABS# (0-10) Total Protein Albumin Globulin Urine Color Urine Appearance Urine pH Ur Specific Gravit y Urine Protein Urine Glucose (UA) Urine Ketones Urine Blood Urine Nitrate Urine Bilirubin Urine Urobilinogen Ur Leukocyte Donya ase Urine Opiates Scre en Ur Barbiturates Sc reen Ur Phencyclidine S crn Ur Amphetamines Sc reen U Benzodiazepines Scrn Urine Cocaine Scre en U Marijuana (THC) Screen Ethyl Alcohol 08/07/21 08/07/21 03:00 03:00 WBC RBC Hgb Hct MCV MCH MCHC RDW Plt Count MPV Neut % (Auto) Lymph % (Auto) [place] % (Auto) Eos % (Auto) Baso % (Auto) Neut # (Auto) Lymph # (Auto) [place] # (Auto) Eos # (Auto) Baso # (Auto) Nucleated RBC % (a uto) Nucleated RBCs # Specimen Type Sample Site ABG pH ABG pCO2 ABG pO2 ABG HCO3 ABG O2 Saturation ABG Base Excess [place] Test A-a O2 Gradient Hematocrit Hgb O2 Saturation Carboxyhemoglobin Methemoglobin Total Hemoglobin Ionized Calcium O2 Delivery Device O2 Liters/Min FiO2 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 [employer]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 ID Sodium Potassium Chloride Carbon Dioxide Anion Gap BUN Creatinine GFR Calculation Glucose Calculated Osmolal ity Lactic Acid Calcium Total Bilirubin AST ALT Alkaline Phosphata se Troponin T Baselin e Troponin T 120 Min [place] Troponin T Total Protein Albumin Globulin Urine Color Yellow (Yellow) Urine Appearance Clear (CLEAR) Urine pH 5 (5-7) Ur Specific Gravit y 1.005 (1.005-1.030) Urine Protein Neg (Negative) Urine Glucose (UA) Norm (Normal) Urine Ketones Negative (Negative) Urine Blood Neg (Negative) Urine Nitrate Negative (Negative) Urine Bilirubin Neg (Negative) Urine Urobilinogen Neg mg/dL mg/dL (Negative) Ur Leukocyte Donya ase Negative (Negative) Urine Opiates Scre en Negative ng/mL ng /mL (Negative) Ur Barbiturates Sc reen Negative ng/mL ng /mL (Negative) Ur Phencyclidine S crn Negative ng/mL ng /mL (Negative) Ur Amphetamines Sc reen Negative ng/mL ng /mL (Negative) U Benzodiazepines Scrn Negative ng/mL ng /mL (Negative) Urine Cocaine Scre en Negative ng/mL ng /mL (Negative) U Marijuana (THC) Screen Positive ng/mL H ng/mL (Negative) Ethyl Alcohol EKG Data^: EKG 1: Computer generated interpretation: Chest X-Ray 08/07/21 00:34 IMPRESSION: No acute disease. Radiation Dose CTDIVOL = (mGy): DLP = (mGy-cm) Head CT 08/07/21 00:34 IMPRESSION: 1. The examination is limited by patient motion. 2. No acute infarct or hemorrhage. 3. No calvarial or skull base fracture. Radiation Dose CTDIVOL = (mGy): DLP = 898.43 (mGy-cm) Discharge Plan Discharge Prescriptions: No Action albuterol sulfate 0.63 mg/3 mL solution for nebulization 0.63 mg INHALATION QID PRNRF: 0 albuterol sulfate 90 mcg/actuation aerosol powdr breath activated 2 inh INHALATION Q6H PRNRF: 0 Adult Probiotic 3 billion cell capsule 3,000 mmu cells PO DAILY RF: 0 glucosamine sulfate 500 mg tablet 500 mg PO DAILY RF: 0 B-complex with vitamin C [Super B Complex-Vitamin C] Tablet 1 tab PO DAILY RF: 0 magnesium 250 mg tablet 250 mg PO DAILY RF: 0 omega-3 fatty acids 500 mg capsule 500 mg PO DAILY RF: 0 ascorbic acid (vitamin C) 500 mg capsule, extended release 180 mg PO DAILY RF: 0 biotin 1,000 mcg tablet,chewable 1,000 mcg PO DAILY RF: 0 MCT Oil 14 gram-120 kcal/15 mL oil 15 ml PO DAILY RF: 0 estrada phqu-mbydkmgv-hrbobgpkl ac 1,000 mg capsule 1 cap PO DAILY RF: 0 rutin 500 mg tablet 500 mg PO DAILY RF: 0 ginseng 100 mg capsule 250 mg PO DAILY RF: 0 medical marijuana See Rx Instructions inhalation .COMPLEX RF: 0 (DME) Spinal cord stimulator 0 .Route .MEDSUPPLY RF: 0 cyanocobalamin (vitamin B-12) 1,000 mcg capsule 1,000 mcg PO DAILY RF: 0 pantoprazole 20 mg tablet,delayed release (DR/EC) 20 mg PO DAILY RF: 0 trospium 20 mg tablet 20 mg PO BID RF: 0 amitriptyline 10 mg tablet 20 mg PO .HS RF: 0 All Day Allergy (cetirizine) 10 mg capsule 10 mg PO .HS RF: 0 cholecalciferol (vitamin D3) 4,000 unit capsule 1,000 unit PO DAILY RF: 0 methocarbamol 500 mg tablet 1,000 mg PO QID RF: 0 meloxicam 7.5 mg tablet 15 mg PO .AM RF: 0 atorvastatin 10 mg tablet 80 mg PO .HS RF: 0 gabapentin 100 mg capsule 1,200 mg PO TID RF: 0 nitrofurantoin monohyd/m-cryst [Macrobid] 100 mg capsule 100 mg PO BID Qty: 28 RF: 2 hydroxyzine HCl 50 mg tablet 50 mg PO QID PRN (Reason: insomnia/anxiety) Qty: 120 RF: 2 buspirone 5 mg tablet 5 mg PO TID Qty: 90 RF: 2 lamotrigine 200 mg tablet 200 mg PO .HS Qty: 30 RF: 2 prazosin 2 mg capsule 4 mg PO .HS Qty: 60 RF: 2 ziprasidone HCl 80 mg capsule 80 mg PO BID Qty: 60 RF: 2 Coding Level of Care Code ED 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
[2021-08-07 01:22] LABS: Basophils # 0.1 10^3/uL (0.0-0.1); Basophils % 0.8 %; Eosinophils # 0.4 10^3/uL (0.0-0.8); Eosinophils % 3.4 %; Hematocrit 38.9 % (37.0-47.0); Hemoglobin 12.9 g/dL (11.5-15.3); Lymphocytes # 3.5 10^3/uL (0.8-4.8); Lymphocytes % 30.1 %; Mean Corpuscular HGB Conc 33.2 g/dL (30.0-36.0); Mean Corpuscular Hemoglobin 29.8 pg (28.0-34.0); Mean Corpuscular Volume 89.8 fl (81-99); Mean Platelet Volume 9.2 fL (7.4-10.4); Monocytes # 0.6 10^3/uL (0.2-0.9); Monocytes % 4.9 %; Neutrophils % 60.6 %; Nucleated Red Blood Cells % 0 %; Platelet Count 305 10^3/cmm (130-400); Red Blood Count 4.33 10^6/uL (4.1-5.3); Red Cell Distribution Width 12.9 % (12.1-15.1); White Blood Count 11.5 10^3/uL (4.0-10.0)
[2021-08-07 01:34] LABS: Troponin(5th) Baseline 7 ng/L (0-10)
[2021-08-07 01:35] LABS: Alanine Aminotransferase 26 U/L (0-33); Albumin Level 4.2 g/dL (3.5-5.2); Alkaline Phosphatase 73 IU/L (35-105); Anion Gap 20.2 (5-19); Aspartate Amino Transferase 21 U/L (0-32); Blood Urea Nitrogen 10 mg/dL (6-20); Calcium 8.8 mg/dL (8.5-10.5); Carbon Dioxide 24 mmol/L (22-29); Chloride 96 mmol/L (98-107); Globulin 2.4 g/dL (1.3-4.6); Glomerular Filtration Rate 76.6 mL/min (90-130); Glucose 133 mg/dL (65-115); Osmolality Calculated 285 mOsm/kg (285-295); Potassium 3.2 mmol/L (3.5-5.1); Sodium 137 mmol/L (136-145); Total Bilirubin 0.4 mg/dL (0.15-1.2); Total Protein 6.6 g/dL (6.6-8.7)
[2021-08-07 01:46] VITALS: BP 100/62
[2021-08-07 01:51] LABS: Alcohol Level < 10 mg/dL (0-10)
[2021-08-07] MEDS: sodium chloride 0.9% 1,000 ML 999 ML IV (02:01)
[2021-08-07 02:13] LABS: ABG PCO2 49.8 mmHg (35-45); ABG PH Result 7.37 (7.35-7.45); Alveolar-Arterial Oxygen Gradi 10.5 mmHg (5-10); Arterial Blood Gas Hematocrit 37.9 % (37-47); Base Excess ABG 2.9 mmol/L (-2.0-2.0); Blood Gas Allen Test Pos; Blood Gas Operator Identificat glc; Blood Gas Sample Site Radial, left; Blood Gas Sample Type Arterial; Carboxyhemoglobin 7.4 %THgb (0.4-20.1); HGB O2 Sat 85.5 % (95-100); Ionized Calcium Level - ABG 1.2 mmol/L (1.1-1.4); Methemoglobin 0.7 % (0.4-1.5); Oxygen Device NC; PO2 ABG 61.5 mmHg (80.0-100.0); Potassium Level - ABG 3.7 mmol/L (3.5-5.0); Total Hemoglobin 12.4 g/dL (12-16)
[2021-08-07 03:02] LABS: Add Urine Microscopic? NO; Charge for UA Resulting for Rev
[2021-08-07 03:06] LABS: Bilirubin Urine Neg (Negative); Blood Urine Neg (Negative); Glucose Urine UA Norm (Normal); Ketones Urine Negative (Negative); Leukocyte Esterase Urine Negative (Negative); Nitrate Urine Negative (Negative); Protein Urine Neg (Negative); Specific Gravity, Urine 1.005 (1.005-1.030); Urine Appearance Clear (CLEAR); Urine Color Yellow (Yellow); Urobilinogen Urine Neg (Negative); pH Urine 5 (5-7)
[2021-08-07 03:13] LABS: Lactic Sepsis W/Reflex 0.9 mmol/L (0.5-2.2)
[2021-08-07 03:14] LABS: Amphetamines Screen Urine Negative (Negative); Barbiturates Screen Urine Negative (Negative); Benzodiazepines Screen Urine Negative (Negative); Cocaine Screen Urine Negative (Negative); Opiate Screen Urine Negative (Negative); PCP Screen Urine Negative (Negative); THC Screen Urine Positive (Negative)
[2021-08-07 03:22] LABS: Troponin 5 2HR 7.67 ng/L (0-10); Troponin 5 2HR Delta 0.67 ABS# (0-10)
[2021-08-07 03:32] VITALS: BP 114/72
[2021-08-07 04:06] VITALS: O2SAT 97
[2021-08-07 04:26] VITALS: BP 117/62
== END 2021-08-07 04:28 | disposition home or self-care (01) ==
PROVIDERS: Physician Assistant; Emergency Provider Emergency Medicine; PCP Nurse Practitioner
DX: R55 Syncope and collapse (principal); J44.9 Chronic obstructive pulmonary disease, unspecified
CPT/HCPCS: 36600; 70450; 71045; 80051; 80053; 80306; 80307; 81003; 82330; 82805; 83605; 84484; 85025; 96360; 99284; J7030

== ENCOUNTER → 2021-08-27 14:47 | Outpatient (BNVA) | payer OTHER, MEDICARE, SELFPAY | PROVIDERS: PCP Nurse Practitioner; Visit Provider Specialist | DX: G43.709 Chronic migraine without aura, not intractable, without status migrainosus (principal); R55 Syncope and collapse; F32.A Depression, unspecified; F43.10 Post-traumatic stress disorder, unspecified | CPT/HCPCS: 64615; 99214 ==

== ENCOUNTER → 2021-11-26 14:41 | Outpatient (BNVA) | payer OTHER, SELFPAY | PROVIDERS: PCP Nurse Practitioner; Visit Provider Counselor Professional | DX: F43.12 Post-traumatic stress disorder, chronic (principal); F12.20 Cannabis dependence, uncomplicated | CPT/HCPCS: 90791 ==

== ENCOUNTER → 2021-12-03 07:57 | Outpatient (BNVA) | payer OTHER, SELFPAY | PROVIDERS: PCP Nurse Practitioner; Visit Provider Psychiatry & Neurology Psychiatry | DX: F33.2 Major depressive disorder, recurrent severe without psychotic features (principal); F43.12 Post-traumatic stress disorder, chronic; F41.1 Generalized anxiety disorder; F12.20 Cannabis dependence, uncomplicated; G43.711 Chronic migraine without aura, intractable, with status migrainosus; R55 Syncope and collapse; F17.210 Nicotine dependence, cigarettes, uncomplicated | CPT/HCPCS: 64615; 99212; 99213; J0585 ==

== ENCOUNTER → 2021-12-08 12:56 | Outpatient (BNVA) | payer OTHER, SELFPAY | PROVIDERS: PCP Nurse Practitioner; Referring Provider Specialist; Visit Provider Specialist | DX: R55 Syncope and collapse (principal); F17.210 Nicotine dependence, cigarettes, uncomplicated | CPT/HCPCS: 95816 ==

== ENCOUNTER → 2021-12-31 10:12 | Outpatient (BNVA) | payer OTHER, SELFPAY | PROVIDERS: PCP Nurse Practitioner; Visit Provider Registered Nurse | DX: Z79.899 Other long term (current) drug therapy (principal) | CPT/HCPCS: 80053; 80061; 82306; 82607; 83036; 84443; 85025 ==

== ENCOUNTER → 2022-01-11 10:54 | Outpatient (BNVA) | payer OTHER, SELFPAY | PROVIDERS: PCP Nurse Practitioner; Visit Provider Counselor Professional | DX: F43.12 Post-traumatic stress disorder, chronic (principal); F12.20 Cannabis dependence, uncomplicated | CPT/HCPCS: 90834 ==

== ENCOUNTER → 2022-01-25 10:52 | Outpatient (BNVA) | payer OTHER, SELFPAY | PROVIDERS: PCP Nurse Practitioner; Visit Provider Counselor Professional | DX: F43.12 Post-traumatic stress disorder, chronic (principal) | CPT/HCPCS: 90834 ==

== ENCOUNTER → 2022-02-10 09:39 | Outpatient (BNVA) | payer OTHER, SELFPAY | PROVIDERS: PCP Nurse Practitioner; Referring Provider Nurse Practitioner; Visit Provider Specialist | DX: M75.01 Adhesive capsulitis of right shoulder (principal); M25.511 Pain in right shoulder; M17.10 Unilateral primary osteoarthritis, unspecified knee | CPT/HCPCS: 20610; 73030; 99213; J1100; J2795; J3301 ==

== ENCOUNTER → 2022-02-18 09:59 | Outpatient (BNVA) | payer OTHER, SELFPAY | PROVIDERS: PCP Nurse Practitioner; Visit Provider Counselor Professional | DX: F43.12 Post-traumatic stress disorder, chronic (principal) | CPT/HCPCS: 90834 ==

== ENCOUNTER → 2022-02-25 10:30 | Outpatient (BNVA) | payer OTHER, SELFPAY | PROVIDERS: PCP Nurse Practitioner; Visit Provider Specialist | DX: G43.711 Chronic migraine without aura, intractable, with status migrainosus (principal); R55 Syncope and collapse | CPT/HCPCS: 64615; 99212; J0585 ==

== ENCOUNTER 2022-04-13 15:37 | Emergency (ER) | payer OTHER, SELFPAY ==
[2022-04-13 15:41] VITALS: BP 131/88; PULSE 97; RESP 18; TEMP 37.1; O2SAT 91; BMI 32.0
--- NOTE | 2022-04-13 15:45 | ED_ITS ---
Documented by User: [email or web address] Hernandez 04/15/22 06:59 HPI - SOB/Dyspnea General: Chief Complaint: Shortness of Breath/Dyspnea Stated Complaint: abnormal labs/low o2 Time Seen by Provider: 04/13/22 15:38 Source: patient Mode of arrival: ambulatory Limitations: no limitations History of Present Illness: HPI Narrative: Patient is a 47-year-old female who presents to ED today with a complaint of productive cough, shortness of breath, body aches, chills, hoarseness, and diarrhea. Symptoms are present over the past 5 days. She apparently was evaluated at the [facility] and had a CXR and was told that it did not look good . States she was told her oxygen was low and thus recommended she come to the ED for evaluation. Patient states she is taken two home rapid COVID tests over the past 5 days both of which have been negative. Patient has not been running fevers. She has no chest pain. Patient states she is an everyday smoker. She denies history of COPD however this is listed in her PMH. She does admit to a history of asthma in which she treats with albuterol nebulizers. Pertinent past history: asthma Onset (ago): day(s) Timing: constant Exacerbating factors: exertion Relieving factors: nothing Known history of: asthma Associated symptoms: Reports chest congestion; Deny abdominal pain, chest pain, dizziness, extremity pain, fever(s), hemoptysis, lightheadedness, nausea, orthopnea, palpitations, syncope or vomiting Review of Systems Const: Reports: chills, body aches and fatigue; Denies: fever(s) or malaise Eyes: Denies: change in vision, blurry vision or photophobia ENMT: Reports: hoarseness; Denies: throat pain, odynophagia, ear or mastoid pain, nasal discharge or nasal congestion Card: Reports: dyspnea on exertion; Denies: chest pain, palpitations, irregular heart rhythm, edema, swelling of feet/ankles, lightheadedness, syncope, pre-syncope, orthopnea, leg pain with exertion or acrocyanosis Resp: Reports: dyspnea, productive cough and chest congestion; Denies: wheezing, pain on inspiration or hemoptysis GI: Reports: diarrhea; Denies: abdominal pain, nausea or vomiting : Denies: flank pain, dysuria or hematuria Musc: Denies: neck pain, back pain, extremity pain or joint pain Skin/Breast: Denies: rash Neuro: Denies: headache(s), numbness in extremities, weakness in extremities, sensory changes or dizziness PFSH ED PFSH: Medical History Adverse drug effect Alcohol use disorder Bipolar 2 disorder Cancer Cervical disc disorder with myelopathy of mid-cervical region COPD (chronic obstructive pulmonary disease) DDD (degenerative disc disease) DJD (degenerative joint disease) Fibromyalgia Hyperlipidemia Hypothyroidism IBS (irritable bowel syndrome) Insomnia Mixed stress and urge urinary incontinence Neurogenic bladder Nicotine dependence, cigarettes, uncomplicated Obstructive sleep apnea untreated Panic disorder Psychiatric care PTSD (post-traumatic stress disorder) PUD (peptic ulcer disease) Recurrent UTI Spondylolisthesis, acquired Tobacco use Surgical History H/O total cystectomy History of appendectomy History of foot surgery Left foot. Five (5) surgeries. History of hysterectomy Hx of cataract extraction Hx of partial cystectomy Family History Grandmother Cancer Father , IN HIS 50'S Hypertension Mother , AT 42 Heart disease Psychiatric illness CHF (congestive heart failure) Brother Heart disease Social History Smoking and tobacco status: current every day smoker cigarettes Packs smoked per day: 1 Years cigarettes smoked: 32 Alcohol intake: never Marital status: Legally Current occupational status: retired and disabled History of recent travel: No Physical Exam Const: COMMON NORMALS: no acute distress, patient oriented x3, no limitations and alert GENERAL APPEARANCE: cooperative NUTRITIONAL APPEARANCE: obese ORIENTATION/CONSCIOUSNESS: Yes awake, Yes oriented to person, Yes oriented to place and Yes oriented to time HENMT: COMMON NORMALS: normocephalic and atraumatic HEAD & SCALP: normal to inspection, normocephalic and atraumatic Chest: COMMONS NORMALS: normal inspection of the chest and normal palpation of entire chest wall Resp: COMMON NORMALS: normal respiratory effort, No retractions and No use of accessory muscles EFFORT & INSPECTION: Yes able to speak in complete sentences, No tachypneic, No pursed lip breathing, No labored, No grunting, No stridor, No retractions and No uses accessory muscles AUSCULTATION: wheezes (RUL, LLL) expiratory wheezes Cardio: COMMON NORMALS: regular rate and regular rhythm RATE: regular rate RHYTHM: regular rhythm GI: COMMON NORMALS: Normal to inspection, nondistended, normoactive bowel sounds present, Soft to palpation and non-tender PALPATION: Yes Soft to palpation : COMMON NORMALS: Yes no CVA tenderness BLADDER/KIDNEY EXAM: Yes no CVA tenderness Back/Pelvis: COMMON NORMALS: no CVA tenderness, thoracic and lumbar spine normal to inspection, no thoracic nor lumbar tenderness and thoraco-lumbar ROM normal Extremity: COMMON NORMALS: normal to inspection, capillary refill normal, no joint enlargement, no clubbing, cyanosis or edema, no calf tenderness and no pedal edema GENERAL: Yes normal exam except as noted Neuro: DERRICK COMA SCALE: document GCS findings Derrick coma scale eye opening: Spontaneous [place] coma scale verbal response: Orientated Derrick coma scale motor response: Obey commands Derrick coma scale total score: 15 COMMON NORMALS: patient oriented x3, moves all extremities, no focal motor deficits, no sensory deficits noted and gait normal SENSORIUM/ORIENTATION: Yes alert, Yes oriented to person, Yes oriented to place and Yes oriented to time SPEECH: speech normal GAIT: Yes Normal gait present Skin: COMMON NORMALS: no rashes or lesions noted GENERAL SKIN EXAM: no rashes or lesions noted Course Vital Signs: Vital signs: Vital Signs Temperature 98.8 F 04/13/22 15:41 Pulse Rate 93 04/13/22 18:52 Respiratory Rate 17 04/13/22 17:23 Blood Pressure 138/97 04/13/22 18:52 Pulse Oximetry 90 04/13/22 18:52 Oxygen Delivery Me thod 04/13/22 18:44 Oxygen Flow Rate 92 04/13/22 17:28 MDM - SOB/Dyspnea Lab Data : 04/13/22 16:45 04/13/22 16:45 Labs/Radiology: Radiology Impressions Chest X-Ray 04/13/22 15:57 IMPRESSION: No obvious acute consolidation. Suboptimal lung base assessment. Followup including lateral view or CT may be obtained if clinically indicated. Laboratory Results WBC 13.1 10^3/uL (4.0-10.0) H 04/13/22 16:45 RBC 5.06 10^6/uL (4.1-5.3) 04/13/22 16:45 Hgb 15.1 g/dL (11.5-15.3) 04/13/22 16:45 Hct 45.3 % (37.0-47.0) 04/13/22 16:45 MCV 89.5 fl (81-99) 04/13/22 16:45 MCH 29.8 pg (28.0-34.0) 04/13/22 16:45 MCHC 33.3 g/dL (30.0-36.0) 04/13/22 16:45 RDW 13.9 % (12.1-15.1) 04/13/22 16:45 Plt Count 304 10^3/cmm (130-400) 04/13/22 16:45 MPV 8.1 fL (7.4-10.4) 04/13/22 16:45 Neut % (Auto) 65.3 % 04/13/22 16:45 Lymph % (Auto) 25.4 % 04/13/22 16:45 [place] % (Auto) 6.0 % 04/13/22 16:45 Eos % (Auto) 2.1 % 04/13/22 16:45 Baso % (Auto) 0.8 % 04/13/22 16:45 Neut # (Auto) 8.57 10^3/uL (1.8-7.7) H 04/13/22 16:45 Lymph # (Auto) 3.3 10^3/uL (0.8-4.8) 04/13/22 16:45 [place] # (Auto) 0.8 10^3/uL (0.2-0.9) 04/13/22 16:45 Eos # (Auto) 0.3 10^3/uL (0.0-0.8) 04/13/22 16:45 Baso # (Auto) 0.1 10^3/uL (0.0-0.1) 04/13/22 16:45 Nucleated RBC % (auto) 0 % 04/13/22 16:45 Nucleated RBCs # 0.0 /100WBC 04/13/22 16:45 Sodium 133 mmol/L (136-145) L 04/13/22 16:45 Potassium 4.4 mmol/L (3.5-5.1) 04/13/22 16:45 Chloride 96 mmol/L (98-107) L 04/13/22 16:45 Carbon Dioxide 26 mmol/L (22-29) 04/13/22 16:45 Anion Gap 15.4 (5-19) 04/13/22 16:45 BUN 5 mg/dL (6-20) L 04/13/22 16:45 Creatinine 0.6 mg/dL (0.5-0.9) 04/13/22 16:45 GFR Calculation 106.3 mL/min (90-130) 04/13/22 16:45 Glucose 96 mg/dL (65-115) 04/13/22 16:45 Calculated Osmolality 273 mOsm/kg (285-295) L 04/13/22 16:45 Calcium 9.2 mg/dL (8.5-10.5) 04/13/22 16:45 Total Bilirubin 0.2 mg/dL (0.15-1.2) 04/13/22 16:45 AST 16 U/L (0-32) 04/13/22 16:45 ALT 22 U/L (0-33) 04/13/22 16:45 Alkaline Phosphatase 91 IU/L (35-105) 04/13/22 16:45 Total Protein 7.0 g/dL (6.6-8.7) 04/13/22 16:45 Albumin 4.7 g/dL (3.5-5.2) 04/13/22 16:45 Globulin 2.3 g/dL (1.3-4.6) 04/13/22 16:45 Procalcitonin 0.02 ng/mL (0-0.5) 04/13/22 16:45 Coronavirus 229E (PCR) Not detected (NOT DETECT) 04/13/22 16:45 SARS-CoV-2 (PCR) Not detected (NOT DETECT) 04/13/22 16:45 Discharge Plan Discharge Patient Disposition: Home Clinical Impression: Acute exacerbation of chronic obstructive airways disease Condition: Stable Prescriptions: New prednisone 20 mg tablet 20 mg PO BID 5 Days Qty: 10 0RF azithromycin 250 mg tablet 250 mg PO DAILY 5 Days Qty: 5 0RF No Action albuterol sulfate 0.63 mg/3 mL solution for nebulization 0.63 mg INHALATION QID PRN albuterol sulfate 90 mcg/actuation aerosol powdr breath activated 2 inh INHALATION Q6H PRN Adult Probiotic 3 billion cell capsule 3,000 mmu cells PO DAILY Rx Instructions: administer with a meal glucosamine sulfate 500 mg tablet 500 mg PO DAILY Rx Instructions: administer with meals B-complex with vitamin C [Super B Complex-Vitamin C] Tablet 1 tab PO DAILY magnesium 250 mg tablet 250 mg PO DAILY omega-3 fatty acids 500 mg capsule 500 mg PO DAILY ascorbic acid (vitamin C) 500 mg capsule, extended release 180 mg PO DAILY biotin 1,000 mcg tablet,chewable 1,000 mcg PO DAILY MCT Oil 14 gram-120 kcal/15 mL oil 15 ml PO DAILY estrada tirw-shehhhzd-[id number] ac 1,000 mg capsule 1 cap PO DAILY Rx Instructions: administer with meals rutin 500 mg tablet 500 mg PO DAILY ginseng 100 mg capsule 250 mg PO DAILY medical marijuana See Rx Instructions inhalation .COMPLEX Rx Instructions: inhalation 4 oz. monthly; (DME) Spinal cord stimulator 0 .Route .MEDSUPPLY minoxidil 5 % foam 1 ea topical .QD Qty: 60 6RF Rx Instructions: Apply as directed on package mometasone 0.1 % solution 1 applic topical DAILY Qty: 60 2RF ziprasidone HCl 80 mg capsule 80 mg PO BID Qty: 60 2RF Rx Instructions: give with food (meal/snack) prazosin 2 mg capsule 4 mg PO .HS Qty: 60 2RF lamotrigine 200 mg tablet 200 mg PO .HS Qty: 30 2RF hydroxyzine HCl 50 mg tablet 50 mg PO QID PRN (Reason: insomnia/anxiety) Qty: 120 2RF cyanocobalamin (vitamin B-12) 1,000 mcg capsule 1,000 mcg PO DAILY pantoprazole 20 mg tablet,delayed release (DR/EC) 20 mg PO DAILY trospium 20 mg tablet 20 mg PO BID All Day Allergy (cetirizine) 10 mg capsule 10 mg PO .HS cholecalciferol (vitamin D3) 4,000 unit capsule 1,000 unit PO DAILY methocarbamol 500 mg tablet 1,000 mg PO QID meloxicam 7.5 mg tablet 15 mg PO .AM atorvastatin 10 mg tablet 80 mg PO .HS Rx Instructions: 40 mg 2 po at HS gabapentin 100 mg capsule 1,200 mg PO TID nitrofurantoin monohyd/m-cryst [Macrobid] 100 mg capsule 100 mg PO BID Qty: 28 2RF Rx Instructions: must administer with a meal/food azelastine 137 mcg (0.1 %) aerosol,spray 1 spray intranasal DAILY fluticasone propionate 50 mcg/actuation spray,suspension 1 spray intranasal DAILY spironolactone 100 mg tablet 100 mg PO DAILY fluticasone propion-salmeterol 250-50 mcg/dose blister with device 1 inh inhalation BID levothyroxine 25 mcg tablet 25 mcg PO DAILY bupropion HCl 150 mg tablet extended release 24 hr 150 mg PO DAILY Qty: 30 2RF Hold Instructions: Doctor's Order amitriptyline 100 mg tablet 100 mg PO .HS Qty: 30 1RF Discharge Orders: Discharge ED (Routine); Ordered 04/13/22 Ordered By: Ollie Cottrell Referrals: Yoli Sousa FNP [Primary Care Provider] - Discharge Diet: Usual diet Discharge Activity: Increase activity as tolerated Patient Instructions: COPD (Chronic Obstructive Pulmonary Disease) (ED) Activity Restrictions/Additional Instructions: Continue with routine care. Take azithromycin 250 mg daily for the next 5 days. Continue with prednisone 20 mg twice a day for 5 days. Drink plenty of water. Continue with inhalers and nebulizer treatments as prescribed. Follow-up with primary care as needed. Return to ER for worsening symptoms or new concerns. Sign Out Sign Out Data: Patient Sign Out occurred on 04/13/22 at 17:05. Patient's care was discussed, and care was transferred from to Ollie Cottrell. Coding Level of Care Code ED Customer Equipment Engineer for Chg Fwd Exam Comprehensive Documented by User: CEDRIC Manzano 04/13/22 17:49 HPI - SOB/Dyspnea General: Chief Complaint: Shortness of Breath/Dyspnea Stated Complaint: abnormal labs/low o2 Time Seen by Provider: 04/13/22 15:38 PFSH ED PFSH: Medical History Adverse drug effect Alcohol use disorder Bipolar 2 disorder Cancer Cervical disc disorder with myelopathy of mid-cervical region COPD (chronic obstructive pulmonary disease) DDD (degenerative disc disease) DJD (degenerative joint disease) Fibromyalgia Hyperlipidemia Hypothyroidism IBS (irritable bowel syndrome) Insomnia Mixed stress and urge urinary incontinence Neurogenic bladder Nicotine dependence, cigarettes, uncomplicated Obstructive sleep apnea untreated Panic disorder Psychiatric care PTSD (post-traumatic stress disorder) PUD (peptic ulcer disease) Recurrent UTI Spondylolisthesis, acquired Tobacco use Surgical History H/O total cystectomy History of appendectomy History of foot surgery Left foot. Five (5) surgeries. History of hysterectomy Hx of cataract extraction Hx of partial cystectomy Family History Grandmother Cancer Father , IN HIS 50'S Hypertension Mother , AT 42 Heart disease Psychiatric illness CHF (congestive heart failure) Brother Heart disease Social History Smoking and tobacco status: current every day smoker cigarettes Packs smoked per day: 1 Years cigarettes smoked: 32 Alcohol intake: never Marital status: Legally Current occupational status: retired and disabled History of recent travel: No Physical Exam Neuro: DERRICK COMA SCALE: document GCS findings [place] coma scale total score: 15 Course Vital Signs: Vital signs: Vital Signs Temperature 98.8 F 04/13/22 15:41 Pulse Rate 93 04/13/22 18:52 Respiratory Rate 17 04/13/22 17:23 Blood Pressure 138/97 04/13/22 18:52 Pulse Oximetry 90 04/13/22 18:52 Oxygen Delivery Me thod 04/13/22 18:44 Oxygen Flow Rate 92 04/13/22 17:28 MDM - SOB/Dyspnea Medical Decision Making 47-year-old female comes in today with shortness of breath. Patient was seen at her primary care office and was referred to the ER for further evaluation. On exam patient has decreased breath sounds throughout lung reyes. Patient does have a history of asthma and COPD. Patient does continue with tobacco smoking. Differential diagnosis includes pneumonia, exacerbation of COPD, hypoxia. Patient was given a nebulizer treatment and evaluated for low oxygen without any signs of significant hypoxemia. Chest x-ray noted no pneumonia. Laboratory values noted to increase in white count at 13,000 and a negative procalcitonin. Recommended patient be treated for exacerbation of COPD with steroids and antibiotics. Patient reported understanding and agreed to plan. Patient will follow-up with primary care otherwise as needed. Lab Data : 04/13/22 16:45 04/13/22 16:45 Labs/Radiology: Radiology Impressions Chest X-Ray 04/13/22 15:57 IMPRESSION: No obvious acute consolidation. Suboptimal lung base assessment. Followup including lateral view or CT may be obtained if clinically indicated. Laboratory Results WBC 13.1 10^3/uL (4.0-10.0) H 04/13/22 16:45 RBC 5.06 10^6/uL (4.1-5.3) 04/13/22 16:45 Hgb 15.1 g/dL (11.5-15.3) 04/13/22 16:45 Hct 45.3 % (37.0-47.0) 04/13/22 16:45 MCV 89.5 fl (81-99) 04/13/22 16:45 MCH 29.8 pg (28.0-34.0) 04/13/22 16:45 MCHC 33.3 g/dL (30.0-36.0) 04/13/22 16:45 RDW 13.9 % (12.1-15.1) 04/13/22 16:45 Plt Count 304 10^3/cmm (130-400) 04/13/22 16:45 MPV 8.1 fL (7.4-10.4) 04/13/22 16:45 Neut % (Auto) 65.3 % 04/13/22 16:45 Lymph % (Auto) 25.4 % 04/13/22 16:45 [place] % (Auto) 6.0 % 04/13/22 16:45 Eos % (Auto) 2.1 % 04/13/22 16:45 Baso % (Auto) 0.8 % 04/13/22 16:45 Neut # (Auto) 8.57 10^3/uL (1.8-7.7) H 04/13/22 16:45 Lymph # (Auto) 3.3 10^3/uL (0.8-4.8) 04/13/22 16:45 [place] # (Auto) 0.8 10^3/uL (0.2-0.9) 04/13/22 16:45 Eos # (Auto) 0.3 10^3/uL (0.0-0.8) 04/13/22 16:45 Baso # (Auto) 0.1 10^3/uL (0.0-0.1) 04/13/22 16:45 Nucleated RBC % (auto) 0 % 04/13/22 16:45 Nucleated RBCs # 0.0 /100WBC 04/13/22 16:45 Sodium 133 mmol/L (136-145) L 04/13/22 16:45 Potassium 4.4 mmol/L (3.5-5.1) 04/13/22 16:45 Chloride 96 mmol/L (98-107) L 04/13/22 16:45 Carbon Dioxide 26 mmol/L (22-29) 04/13/22 16:45 Anion Gap 15.4 (5-19) 04/13/22 16:45 BUN 5 mg/dL (6-20) L 04/13/22 16:45 Creatinine 0.6 mg/dL (0.5-0.9) 04/13/22 16:45 GFR Calculation 106.3 mL/min (90-130) 04/13/22 16:45 Glucose 96 mg/dL (65-115) 04/13/22 16:45 Calculated Osmolality 273 mOsm/kg (285-295) L 04/13/22 16:45 Calcium 9.2 mg/dL (8.5-10.5) 04/13/22 16:45 Total Bilirubin 0.2 mg/dL (0.15-1.2) 04/13/22 16:45 AST 16 U/L (0-32) 04/13/22 16:45 ALT 22 U/L (0-33) 04/13/22 16:45 Alkaline Phosphatase 91 IU/L (35-105) 04/13/22 16:45 Total Protein 7.0 g/dL (6.6-8.7) 04/13/22 16:45 Albumin 4.7 g/dL (3.5-5.2) 04/13/22 16:45 Globulin 2.3 g/dL (1.3-4.6) 04/13/22 16:45 Procalcitonin 0.02 ng/mL (0-0.5) 04/13/22 16:45 Coronavirus 229E (PCR) Not detected (NOT DETECT) 04/13/22 16:45 SARS-CoV-2 (PCR) Not detected (NOT DETECT) 04/13/22 16:45 Discharge Plan Discharge Patient Disposition: Home Clinical Impression: Acute exacerbation of chronic obstructive airways disease Condition: Stable Prescriptions: New prednisone 20 mg tablet 20 mg PO BID 5 Days Qty: 10 0RF azithromycin 250 mg tablet 250 mg PO DAILY 5 Days Qty: 5 0RF No Action albuterol sulfate 0.63 mg/3 mL solution for nebulization 0.63 mg INHALATION QID PRN albuterol sulfate 90 mcg/actuation aerosol powdr breath activated 2 inh INHALATION Q6H PRN Adult Probiotic 3 billion cell capsule 3,000 mmu cells PO DAILY Rx Instructions: administer with a meal glucosamine sulfate 500 mg tablet 500 mg PO DAILY Rx Instructions: administer with meals B-complex with vitamin C [Super B Complex-Vitamin C] Tablet 1 tab PO DAILY magnesium 250 mg tablet 250 mg PO DAILY omega-3 fatty acids 500 mg capsule 500 mg PO DAILY ascorbic acid (vitamin C) 500 mg capsule, extended release 180 mg PO DAILY biotin 1,000 mcg tablet,chewable 1,000 mcg PO DAILY MCT Oil 14 gram-120 kcal/15 mL oil 15 ml PO DAILY estrada [id number]-[id number]-[id number] ac 1,000 mg capsule 1 cap PO DAILY Rx Instructions: administer with meals rutin 500 mg tablet 500 mg PO DAILY ginseng 100 mg capsule 250 mg PO DAILY medical marijuana See Rx Instructions inhalation .COMPLEX Rx Instructions: inhalation 4 oz. monthly; (DME) Spinal cord stimulator 0 .Route .MEDSUPPLY minoxidil 5 % foam 1 ea topical .QD Qty: 60 6RF Rx Instructions: Apply as directed on package mometasone 0.1 % solution 1 applic topical DAILY Qty: 60 2RF ziprasidone HCl 80 mg capsule 80 mg PO BID Qty: 60 2RF Rx Instructions: give with food (meal/snack) prazosin 2 mg capsule 4 mg PO .HS Qty: 60 2RF lamotrigine 200 mg tablet 200 mg PO .HS Qty: 30 2RF hydroxyzine HCl 50 mg tablet 50 mg PO QID PRN (Reason: insomnia/anxiety) Qty: 120 2RF cyanocobalamin (vitamin B-12) 1,000 mcg capsule 1,000 mcg PO DAILY pantoprazole 20 mg tablet,delayed release (DR/EC) 20 mg PO DAILY trospium 20 mg tablet 20 mg PO BID All Day Allergy (cetirizine) 10 mg capsule 10 mg PO .HS cholecalciferol (vitamin D3) 4,000 unit capsule 1,000 unit PO DAILY methocarbamol 500 mg tablet 1,000 mg PO QID meloxicam 7.5 mg tablet 15 mg PO .AM atorvastatin 10 mg tablet 80 mg PO .HS Rx Instructions: 40 mg 2 po at HS gabapentin 100 mg capsule 1,200 mg PO TID nitrofurantoin monohyd/m-cryst [Macrobid] 100 mg capsule 100 mg PO BID Qty: 28 2RF Rx Instructions: must administer with a meal/food azelastine 137 mcg (0.1 %) aerosol,spray 1 spray intranasal DAILY fluticasone propionate 50 mcg/actuation spray,suspension 1 spray intranasal DAILY spironolactone 100 mg tablet 100 mg PO DAILY fluticasone propion-salmeterol 250-50 mcg/dose blister with device 1 inh inhalation BID levothyroxine 25 mcg tablet 25 mcg PO DAILY bupropion HCl 150 mg tablet extended release 24 hr 150 mg PO DAILY Qty: 30 2RF Hold Instructions: Doctor's Order amitriptyline 100 mg tablet 100 mg PO .HS Qty: 30 1RF Discharge Orders: Discharge ED (Routine); Ordered 04/13/22 Ordered By: Ollie Cottrell Referrals: Yoli Sousa FNP [Primary Care Provider] - Discharge Diet: Usual diet Discharge Activity: Increase activity as tolerated Patient Instructions: COPD (Chronic Obstructive Pulmonary Disease) (ED) Activity Restrictions/Additional Instructions: Continue with routine care. Take azithromycin 250 mg daily for the next 5 days. Continue with prednisone 20 mg twice a day for 5 days. Drink plenty of water. Continue with inhalers and nebulizer treatments as prescribed. Follow-up with primary care as needed. Return to ER for worsening symptoms or new concerns. Sign Out Sign Out Data: Patient Sign Out occurred on 04/13/22 at 17:05. Patient's care was discussed, and care was transferred from to Ollie Cottrell. Coding Level of Care Code ED Customer Equipment Engineer for Silvia Fwd Exam Comprehensive
--- NOTE | 2022-04-13 15:57 | XRR_ITS ---
PROCEDURE INFORMATION: Exam: XR Chest Exam date and time: 04/13/2022 4:12 PM Age: 47 years old Clinical indication: Cough and shortness of breath; Additional info: Cough, SOB; Covid symptoms TECHNIQUE: Imaging protocol: Radiologic exam of the chest. Views: 1 view. COMPARISON: CR XR chest 1V portable [id number] 08/07/2021 12:55 AM FINDINGS: Lungs: The lung bases are suboptimally assessed due to technique however the upper lungs are clear of focal consolidation. Pleural spaces: Unremarkable. No pleural effusion. No pneumothorax. Heart/Mediastinum: Cardiac silhouette appears normal in size. No obvious vascular congestion. Bones/joints: No acute osseous findings. One of the lower intraspinal electronic wire has been advanced more cephalad and both are now located in the midthoracic level. Other findings: Single view was submitted. XR/XR chest 1V portable [id number] IMPRESSION: No obvious acute consolidation. Suboptimal lung base assessment. Followup including lateral view or CT may be obtained if clinically indicated.
[2022-04-13] MEDS: dexamethasone 10 mg/mL INJ 6 MG IV (16:59)
[2022-04-13 17:03] LABS: Basophils # 0.1 10^3/uL (0.0-0.1); Basophils % 0.8 %; Eosinophils # 0.3 10^3/uL (0.0-0.8); Eosinophils % 2.1 %; Hematocrit 45.3 % (37.0-47.0); Hemoglobin 15.1 g/dL (11.5-15.3); Lymphocytes # 3.3 10^3/uL (0.8-4.8); Lymphocytes % 25.4 %; Mean Corpuscular HGB Conc 33.3 g/dL (30.0-36.0); Mean Corpuscular Hemoglobin 29.8 pg (28.0-34.0); Mean Corpuscular Volume 89.5 fl (81-99); Mean Platelet Volume 8.1 fL (7.4-10.4); Monocytes # 0.8 10^3/uL (0.2-0.9); Neutrophils # 8.57 10^3/uL (1.8-7.7); Neutrophils % 65.3 %; Nucleated Red Blood Cells % 0 %; Platelet Count 304 10^3/cmm (130-400); Red Blood Count 5.06 10^6/uL (4.1-5.3); Red Cell Distribution Width 13.9 % (12.1-15.1); White Blood Count 13.1 10^3/uL (4.0-10.0)
[2022-04-13 17:21] LABS: Alanine Aminotransferase 22 U/L (0-33); Albumin Level 4.7 g/dL (3.5-5.2); Alkaline Phosphatase 91 IU/L (35-105); Anion Gap 15.4 (5-19); Aspartate Amino Transferase 16 U/L (0-32); Blood Urea Nitrogen 5 mg/dL (6-20); Calcium 9.2 mg/dL (8.5-10.5); Carbon Dioxide 26 mmol/L (22-29); Chloride 96 mmol/L (98-107); Creatinine Clr Calc Pharmacy 110.6742; Globulin 2.3 g/dL (1.3-4.6); Glomerular Filtration Rate 106.3 mL/min (90-130); Glucose 96 mg/dL (65-115); Osmolality Calculated 273 mOsm/kg (285-295); Potassium 4.4 mmol/L (3.5-5.1); Sodium 133 mmol/L (136-145); Total Bilirubin 0.2 mg/dL (0.15-1.2)
[2022-04-13 17:23] VITALS: PULSE 102; RESP 17; O2SAT 90
[2022-04-13] MEDS: ipratropium 0.5 mg/2.5 mL Neb INHALATION (17:23)
[2022-04-13] MEDS: levalbuterol 0.63 mg/3 mL Neb INHALATION (17:23)
[2022-04-13 17:28] VITALS: O2SAT 90
[2022-04-13 17:28] LABS: Procalcitonin 0.02 ng/mL (0-0.5)
[2022-04-13] MEDS: azithromycin 250 mg Tablet 500 MG PO (18:40)
[2022-04-13 18:44] VITALS: BP 138/97; PULSE 93; O2SAT 90
[2022-04-13 18:52] VITALS: BP 138/97; PULSE 93; O2SAT 90
[2022-04-13 19:06] LABS: Adenovirus Not Detected (NOT DETECT); Chlamydia Pneumoniae Not Detected (NOT DETECT); Coronavirus 229E,HKU1,NL63,OC4 Not Detected (NOT DETECT); Human Metapneumovirus Not Detected (NOT DETECT); Human Rhinovirus/Enterovirus Not Detected (NOT DETECT); Influenza A Not Detected (NOT DETECT); Influenza A H1 Not Detected (NOT DETECT); Influenza A H1-2009 Not Detected (NOT DETECT); Influenza A H3 Not Detected (NOT DETECT); Influenza B Not Detected (NOT DETECT); Mycoplasma Pneumoniae Not Detected (NOT DETECT); Parainfluenza Virus Type 1 Not Detected (NOT DETECT); Parainfluenza Virus Type 2 Not Detected (NOT DETECT); Parainfluenza Virus Type 3 Not Detected (NOT DETECT); Parainfluenza Virus Type 4 Not Detected (NOT DETECT); Respiratory Syncytial Virus A Not Detected (NOT DETECT); Respiratory Syncytial Virus B Not Detected (NOT DETECT); SARS-COV-2 Not Detected (NOT DETECT)
== END 2022-04-13 18:50 | disposition home or self-care (01) ==
PROVIDERS: Physician Assistant; Emergency Provider Nurse Practitioner Family; PCP Nurse Practitioner
DX: J44.1 Chronic obstructive pulmonary disease with (acute) exacerbation (principal); E78.5 Hyperlipidemia, unspecified; F17.210 Nicotine dependence, cigarettes, uncomplicated; Z20.822 Contact with and (suspected) exposure to COVID-19
CPT/HCPCS: 71045; 80053; 84145; 85025; 87635; 94640; 96374; 99284; J1100; J7614; J7644; Q0144

== ENCOUNTER → 2022-05-27 09:34 | Outpatient (BNVA) | payer OTHER, SELFPAY | PROVIDERS: PCP Nurse Practitioner; Visit Provider Specialist | DX: M75.01 Adhesive capsulitis of right shoulder (principal) | CPT/HCPCS: 20610; 99213; J1100; J2795; J3301 ==

== ENCOUNTER → 2022-06-01 11:32 | Outpatient (BNVA) | payer OTHER, SELFPAY | PROVIDERS: PCP Nurse Practitioner; Visit Provider Registered Nurse | DX: Z79.899 Other long term (current) drug therapy (principal) | CPT/HCPCS: 80178 ==

== ENCOUNTER → 2022-06-03 10:15 | Outpatient (BNVA) | payer OTHER, SELFPAY | PROVIDERS: PCP Nurse Practitioner; Visit Provider Specialist | DX: G43.711 Chronic migraine without aura, intractable, with status migrainosus (principal) | CPT/HCPCS: 64615; J0585 ==

== ENCOUNTER → 2022-07-01 09:14 | Outpatient (BNVA) | payer OTHER, SELFPAY | PROVIDERS: PCP Nurse Practitioner; Visit Provider Specialist | DX: M17.12 Unilateral primary osteoarthritis, left knee (principal) | CPT/HCPCS: 20610; J7327 ==

== ENCOUNTER → 2022-08-03 09:50 | Outpatient (BNVA) | payer OTHER, SELFPAY | PROVIDERS: PCP Nurse Practitioner; Visit Provider Registered Nurse | DX: Z79.899 Other long term (current) drug therapy (principal) | CPT/HCPCS: 80178 ==

== ENCOUNTER 2022-09-16 14:32 | Emergency (ER) | payer OTHER, SELFPAY ==
[2022-09-16 16:22] VITALS: BP 121/87; PULSE 83; RESP 17; TEMP 36.3; O2SAT 93; BMI 37.3
--- NOTE | 2022-09-16 16:30 | CTR_ITS ---
PROCEDURE INFORMATION: Exam: CT Cervical Spine Without Contrast Exam date and time: 09/16/2022 6:48 PM Age: 47 years old Clinical indication: Injury or trauma; Fall; Blunt trauma; Injury details: Fell 10 plus days ago, experiencing worsening numbness, tingling on left side of neck and in arm TECHNIQUE: Imaging protocol: Computed tomography of the cervical spine without contrast. Radiation optimization: All CT scans at this facility use at least one of these dose optimization techniques: automated exposure control; mA and/or kV adjustment per patient size (includes targeted exams where dose is matched to clinical indication); or iterative reconstruction. COMPARISON: CT cervical spin wo con* [id number] 08/05/2019 1:57 PM RADIATION DOSE METRICS: Total DLP (mGy-cm): 502.87 FINDINGS: Bones/joints: No acute fracture. Slight levels of listhesis are seen, most pronounced at C2 on C3 that measure up to about 3 mm. No jumped, locked or perched facets are visualized. The dens is intact. Mild dextroscoliosis. Mild diffuse cervical degenerative change with facet arthropathy. Lungs: Lung apices are normal. Vasculature: Advanced diffuse vascular calcification noted. Soft tissues: Unremarkable. CT/CT cervical spin wo con* [id number] IMPRESSION: 1. No acute findings. 2. Mild diffuse cervical degenerative change with a few slight levels of chronic appearing listhesis.
--- NOTE | 2022-09-16 18:46 | ED_ITS ---
HPI - Neck Pain/Injury General: Chief Complaint: Neck Pain/Injury Stated Complaint: back for neck and head pain Time Seen by Provider: 09/16/22 18:42 Source: patient Mode of arrival: ambulatory Limitations: no limitations History of Present Illness: 47-year-old female who states she fell 2 weeks ago was having some neck pain felt like a whiplash injury states that over the last week her pain has worsened rates her pain currently an 8 out of 10 she denies any headache denies any loss consciousness denies any numbness or weakness to her extremities. Associated symptoms: Denies headache(s) or nausea Review of Systems Const: Denies: fever(s), chills, body aches or change in appetite Eyes: Denies: blurry vision or eye discomfort ENMT: Denies: throat pain or dental pain Card: Denies: chest pain Resp: Denies: dyspnea GI: Denies: abdominal pain, nausea, vomiting or diarrhea : Denies: dysuria Musc: Reports: neck pain Skin/Breast: Denies: rash Neuro: Denies: headache(s) Psych: Denies: depression Royal/Lymph: Denies: easy bruising All/Imm: Denies: urticaria PFSH ED PFSH: Medical History Adverse drug effect Alcohol use disorder Bipolar 2 disorder Cancer Cervical disc disorder with myelopathy of mid-cervical region COPD (chronic obstructive pulmonary disease) DDD (degenerative disc disease) DJD (degenerative joint disease) Fibromyalgia Hyperlipidemia Hypothyroidism IBS (irritable bowel syndrome) Insomnia Mixed stress and urge urinary incontinence Neurogenic bladder Nicotine dependence, cigarettes, uncomplicated Nightmares Noncompliance with medication regimen Obstructive sleep apnea untreated Panic disorder Psychiatric care PTSD (post-traumatic stress disorder) PUD (peptic ulcer disease) Recurrent UTI Spondylolisthesis, acquired Tobacco use Tremor Surgical History H/O total cystectomy History of appendectomy History of foot surgery Left foot. Five (5) surgeries. History of hysterectomy Hx of cataract extraction Hx of partial cystectomy Family History Grandmother Cancer Father , IN HIS 50'S Hypertension Mother , AT 42 Heart disease Psychiatric illness CHF (congestive heart failure) Brother Heart disease Social History Smoking and tobacco status: current every day smoker cigarettes Packs smoked per day: 1 Years cigarettes smoked: 32 Alcohol intake: never Marital status: Legally Current occupational status: retired and disabled History of recent travel: No Physical Exam Const: COMMON NORMALS: no acute distress, patient oriented x3 and healthy appearing HENMT: COMMON NORMALS: normocephalic and atraumatic HEAD & SCALP: normocephalic and atraumatic Eye: COMMON NORMALS: Equal, round and reactive pupils present and EOMs intact bilaterally PUPIL: Yes Equal, round and reactive pupils present Neck/C-Spine: OTHER: in c collar Chest: COMMONS NORMALS: normal inspection of the chest and normal palpation of entire chest wall Resp: COMMON NORMALS: normal respiratory effort, No retractions, No use of accessory muscles and clear to auscultation bilaterally AUSCULTATION: clear to auscultation bilaterally Cardio: COMMON NORMALS: regular rate, regular rhythm and No murmurs present (Cardio) RATE: regular rate RHYTHM: regular rhythm GI: COMMON NORMALS: Normal to inspection, nondistended, normoactive bowel sounds present, Soft to palpation, non-tender and no masses PALPATION: Yes Soft to palpation Extremity: COMMON NORMALS: normal to inspection and full ROM Neuro: COMMON NORMALS: patient oriented x3, moves all extremities and no focal motor deficits Psych: COMMON NORMALS: mental status grossly normal, Normal thought process present and cooperative THOUGHT PROCESS: Normal thought process present Skin: COMMON NORMALS: no rashes or lesions noted and no wounds GENERAL SKIN EXAM: no rashes or lesions noted Course Vital Signs: Vital signs: Vital Signs Temperature 97.4 F L 09/16/22 16:22 Pulse Rate 83 09/16/22 16:22 Respiratory Rate 17 09/16/22 16:22 Blood Pressure 121/87 09/16/22 16:22 Pulse Oximetry 93 09/16/22 16:22 Oxygen Delivery Me thod 09/16/22 16:22 MDM - Neck Pain/Injury Medical Decision Making Patient presents here with cervical strain CT is normal she is stable for discharge Lab Data Radiology Impressions Cervical Spine CT 09/16/22 16:30 IMPRESSION: 1. No acute findings. 2. Mild diffuse cervical degenerative change with a few slight levels of chronic appearing listhesis. Discharge Plan Discharge Patient Disposition: Home Clinical Impression: Whiplash injury to neck Condition: Stable Prescriptions: New methocarbamol 750 mg tablet 750 mg PO Q6H PRN (Reason: spasms) Qty: 20 0RF Naprosyn 500 mg tablet 500 mg PO BID PRN (Reason: pain) Qty: 20 0RF No Action albuterol sulfate 0.63 mg/3 mL solution for nebulization 0.63 mg INHALATION QID PRN albuterol sulfate 90 mcg/actuation aerosol powdr breath activated 2 inh INHALATION Q6H PRN magnesium 250 mg tablet 250 mg PO DAILY omega-3 fatty acids 500 mg capsule 500 mg PO DAILY medical marijuana See Rx Instructions inhalation .COMPLEX Rx Instructions: inhalation 4 oz. monthly; (DME) Spinal cord stimulator 0 .Route .MEDSUPPLY minoxidil 5 % foam 1 ea topical .QD Qty: 60 6RF Rx Instructions: Apply as directed on package mometasone 0.1 % solution 1 applic topical DAILY Qty: 60 2RF pantoprazole 20 mg tablet,delayed release (DR/EC) 20 mg PO DAILY trospium 20 mg tablet 20 mg PO BID All Day Allergy (cetirizine) 10 mg capsule 10 mg PO .HS methocarbamol 500 mg tablet 1,000 mg PO QID meloxicam 7.5 mg tablet 15 mg PO .AM atorvastatin 10 mg tablet 80 mg PO .HS Rx Instructions: 40 mg 2 po at HS gabapentin 100 mg capsule 1,200 mg PO TID azelastine 137 mcg (0.1 %) aerosol,spray 1 spray intranasal DAILY fluticasone propionate 50 mcg/actuation spray,suspension 1 spray intranasal DAILY fluticasone propion-salmeterol 250-50 mcg/dose blister with device 1 inh inhalation BID benztropine 1 mg tablet 1 mg PO BID PRN (Reason: tremor/involuntary movement) Qty: 60 0RF lamotrigine 200 mg tablet 200 mg PO .HS Qty: 30 2RF prazosin 5 mg capsule 5 - 10 mg PO .HS Qty: 60 0RF ziprasidone HCl 80 mg capsule 80 mg PO BID Qty: 60 0RF Rx Instructions: give with food (meal/snack) Discharge Orders: Discharge ED (Routine); Ordered 09/16/22 Ordered By: Montez Kevin Referrals: Yoli Sousa FNP [Primary Care Provider] - Discharge Diet: Advance as tolerated Discharge Activity: Resume usual activity Patient Instructions: Cervical Strain (ED) Coding Level of Care Code ED 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
[2022-09-16 19:34] VITALS: BP 122/80; PULSE 90; RESP 18; O2SAT 96
[2022-09-16] MEDS: HYDROcodone-acetaminophen 5-325 mg Tablet 1 TAB PO (19:34)
[2022-09-16 20:00] VITALS: BP 122/80; PULSE 90; RESP 18; O2SAT 96
== END 2022-09-16 19:45 | disposition home or self-care (01) ==
PROVIDERS: Emergency Provider Emergency Medicine; PCP Nurse Practitioner
DX: S13.4XXA Sprain of ligaments of cervical spine, initial encounter (principal); F17.210 Nicotine dependence, cigarettes, uncomplicated; J44.9 Chronic obstructive pulmonary disease, unspecified; E78.5 Hyperlipidemia, unspecified; W19.XXXA Unspecified fall, initial encounter
CPT/HCPCS: 72125; 99284

== ENCOUNTER → 2022-09-30 08:51 | Outpatient (BNVA) | payer OTHER, SELFPAY | PROVIDERS: PCP Nurse Practitioner; Visit Provider Specialist | DX: M25.811 Other specified joint disorders, right shoulder (principal) | CPT/HCPCS: 20610; J1100; J2795; J3301 ==

== ENCOUNTER → 2022-10-07 10:58 | Outpatient (BNVA) | payer OTHER, SELFPAY | PROVIDERS: PCP Nurse Practitioner; Visit Provider Specialist | DX: G43.711 Chronic migraine without aura, intractable, with status migrainosus (principal) | CPT/HCPCS: 64615; J0585 ==

== ENCOUNTER → 2022-12-30 09:49 | Outpatient (BNVA) | payer OTHER, SELFPAY | PROVIDERS: PCP Nurse Practitioner; Visit Provider Specialist | DX: M75.01 Adhesive capsulitis of right shoulder (principal); Z71.89 Other specified counseling | CPT/HCPCS: 20610; J1100; J2795; J3301 ==

== ENCOUNTER 2023-01-11 14:14 | Outpatient (CLI) | payer OTHER, SELFPAY ==
--- NOTE | 2023-01-11 14:45 | USCV_ITS ---
Keyanna Thomas Age: 47 Gender: F : 1975 Exam Date: 01/11/2023 15:05 Ordering Phys: Yoli Sousa Technologist: CT Exam Location: [facility] [place] Indication: Risk Factors: Previous Vascular Surgery: Right Brachial BP: / Left Brachial BP: / Right Left Velocity (cm/s) Spectral Plaque Velocity (cm/s) Spectral Plaque Syst/Diast Broadening Syst/Diast Broadening 87.00/ 18.50 Prox CCA 81.40 / 21.80 69.10/ 18.50 Mid CCA 77.80 / 25.40 51.80/ 19.10 Distal CCA 76.30 / 29.10 52.90/ 20.80 Prox ICA 49.20 / 18.80 63.40/ 25.70 Mid ICA 52.80 / 20.10 53.90/ 22.40 Distal ICA 79.90 / 23.80 59.90 ECA 72.60 0.73 ICA/CCA 0.98 Antegrade Vertebral Antegrade 56.50/ 16.40 cm/s 40.10/ 17.70 cm/s Subclavian 113.6 110.3 0 0 CONCLUSIONS Left ICA stenosis <50%. Right ICA stenosis <50%. Normal antegrade Doppler flow noted in the right vertebral artery. Normal antegrade Doppler flow noted in the left vertebral artery. Ismael Gaxiola MD (Electronically Signed) Final Date: 11 January 2023 16:58 S
== END 2023-01-11 14:15 | disposition home or self-care (01) ==
LOC: RAD 14:24
PROVIDERS: PCP Nurse Practitioner; Visit Provider Nurse Practitioner
DX: I65.21 Occlusion and stenosis of right carotid artery (principal)
CPT/HCPCS: 93880

== ENCOUNTER → 2023-01-13 11:07 | Outpatient (BNVA) | payer OTHER, SELFPAY | PROVIDERS: PCP Nurse Practitioner; Visit Provider Specialist | DX: G43.711 Chronic migraine without aura, intractable, with status migrainosus (principal) | CPT/HCPCS: 64615; J0585 ==

== ENCOUNTER → 2023-01-27 09:04 | Outpatient (BNVA) | payer OTHER, SELFPAY | PROVIDERS: PCP Nurse Practitioner; Visit Provider Specialist | DX: M17.12 Unilateral primary osteoarthritis, left knee (principal) | CPT/HCPCS: 20610; J7327 ==

== ENCOUNTER → 2023-04-27 14:21 | Outpatient (BNVA) | payer OTHER, SELFPAY | PROVIDERS: PCP Nurse Practitioner; Visit Provider Specialist | DX: G43.711 Chronic migraine without aura, intractable, with status migrainosus (principal) | CPT/HCPCS: 64615 ==

== ENCOUNTER → 2023-05-05 08:05 | Outpatient (BNVA) | payer OTHER, SELFPAY | PROVIDERS: Visit Provider Specialist | DX: M19.011 Primary osteoarthritis, right shoulder (principal); Z71.89 Other specified counseling | CPT/HCPCS: 20610; J1100; J2795; J3301 ==

== ENCOUNTER → 2023-05-20 11:15 | Outpatient (BNVA) | payer OTHER, SELFPAY | PROVIDERS: PCP Nurse Practitioner; Referring Provider Emergency Medicine Emergency Medical Services; Visit Provider Nurse Practitioner Family | DX: B35.1 Tinea unguium (principal); L60.3 Nail dystrophy; L65.0 Telogen effluvium; D22.5 Melanocytic nevi of trunk; L81.4 Other melanin hyperpigmentation; L85.3 Xerosis cutis; L57.8 Other skin changes due to chronic exposure to nonionizing radiation | CPT/HCPCS: 99214 ==

== ENCOUNTER → 2023-06-08 09:20 | Outpatient (BNVA) | payer OTHER, SELFPAY | PROVIDERS: PCP Nurse Practitioner; Visit Provider Dermatology | DX: L60.3 Nail dystrophy (principal); B35.1 Tinea unguium; L60.8 Other nail disorders | CPT/HCPCS: 11730; 99213 ==

== ENCOUNTER 2023-07-05 10:08 | Outpatient (CLI) | payer OTHER, SELFPAY ==
--- NOTE | 2023-07-05 10:15 | MM_ITS ---
WS: [id number] BILATERAL 3D TOMOSYNTHESIS DIGITAL SCREENING MAMMOGRAPHY WITH CAD CLINICAL INFORMATION: SCREENING HISTORY: Screening mammogram. No current complaints. COMPARISON: 2020 TECHNIQUE: Bilateral CC and MLO views. FINDINGS: Scattered fibroglandular densities bilaterally. No suspicious focal mass, asymmetry, calcifications, or architectural distortion. No evidence of malignancy. Punctate and lucent centered calcifications. IMPRESSION: MM/[place] [id number] BI-RADS: 2-Benign FOLLOW UP: 1 Year Follow-up Recommend return to annual screening mammography.
--- NOTE | 2023-07-05 10:17 | CT_ITS ---
WS: [id number] CT CERVICAL SPINE TECHNIQUE: Noncontrast CT of the cervical spine with coronal and sagittal reformatted images. CLINICAL INFORMATION: RADICULOPATHY COMPARISON: None. DLP: 160.[address] scans at [facility] use at least one of these dose optimization techniques: automated e xposure control; mA and/or kV adjustment per patient size (includes targeted exams where dose is matc hed to clinical indication); or iterative reconstruction. FINDINGS: Mild spondylitic changes. Slight anterolisthesis C2 on C3 and C3 on C4. This measures 2.1 and 2.3 mm respectively. C2-C3:Moderate facet arthropathy. Spinal canal and foramen are patent. C3-C4: Mild disc osteophytic ridging. Moderate facet arthropathy. Mild LEFT greater than RIGHT bony f oraminal narrowing. C4-C5: Mild facet arthropathy. Spinal canal and foramen are patent. C5-C6: Mild facet arthropathy. Spinal canal and foramen are patent. C6-C7: Disc osteophytic ridging with uncovertebral joint hypertrophy. Mild facet arthropathy. Moderat e LEFT and mild RIGHT bony foraminal narrowing. C7-T1: Slight anterolisthesis. Spinal canal and foramen are patent. Visualized posterior nasopharynx: Normal. Prevertebral soft tissues: Normal. Carotid bulb calcification. IMPRESSION: 1. Slight anterolisthesis C2 on C3 and C3 on C4 unchanged. Trace anterolisthesis C7 on T1. 2. No significant central canal stenosis. 3. Moderate LEFT and mild RIGHT C6-7 bony foraminal narrowing. 4. Otherwise mild foraminal narrowing described above. 5. Moderate facet arthropathy worse at LEFT C3-C4
--- NOTE | 2023-07-05 10:17 | CT_ITS ---
WS: [id number] CT THORACIC SPINE TECHNIQUE: Noncontrast CT of the thoracic spine with coronal and sagittal reformatted images. CLINICAL INFORMATION: RADICULOPATHY COMPARISON: None. DLP: 503.[address] scans at [facility] use at least one of these dose optimization techniques: automated e xposure control; mA and/or kV adjustment per patient size (includes targeted exams where dose is matc hed to clinical indication); or iterative reconstruction. FINDINGS: Mild thoracic curve.Mild thoracic kyphosis. Spinal stimulator with leads in the mid thoracic canal. S chmorl's nodes in the mid and lower thoracic spine. Mild chronic anterior wedging the midthoracic spi ne. Mild spondylitic changes. No high-grade central canal stenosis. LEFT subarticular disc osteophyte complex T9-T10 with narrowing of the LEFT subarticular recess and m ild LEFT proximal foraminal narrowing. Anterior wedging with Schmorl's nodes more prominent at T5, T7, and superior endplate Schmorl's node at T12. Slight bibasilar atelectasis. Mild facet arthropathy lower thoracic spine. Adrenal glands are normal. IMPRESSION: 1. Mild thoracic curve. Mild thoracic kyphosis. 2. Dorsal spinal stimulator in the midthoracic canal. 3. A few Schmorl's nodes in the mid and lower thoracic spine with mild chronic anterior wedging. 4. LEFT subarticular disc osteophyte protrusion T9-T10 with narrowing of the LEFT subarticular reces s and mild LEFT proximal foraminal narrowing 5. No other acute findings.
== END 2023-07-05 10:09 | disposition home or self-care (01) ==
PROVIDERS: PCP Nurse Practitioner; Visit Provider General Practice
DX: Z12.31 Encounter for screening mammogram for malignant neoplasm of breast (principal); M40.204 Unspecified kyphosis, thoracic region; Z96.82 Presence of neurostimulator; M51.44 Schmorl's nodes, thoracic region; M25.78 Osteophyte, vertebrae; M48.04 Spinal stenosis, thoracic region; M51.24 Other intervertebral disc displacement, thoracic region; M47.22 Other spondylosis with radiculopathy, cervical region; M54.14 Radiculopathy, thoracic region; M48.02 Spinal stenosis, cervical region
CPT/HCPCS: 72125; 72128; 77063; 77067

== ENCOUNTER → 2023-07-14 08:48 | Outpatient (BNVA) | payer OTHER, SELFPAY | PROVIDERS: PCP Nurse Practitioner; Visit Provider Specialist | DX: M17.12 Unilateral primary osteoarthritis, left knee | CPT/HCPCS: 20610; J1100; J2795; J3301 ==

== ENCOUNTER → 2023-07-21 09:26 | Outpatient (BNVA) | payer OTHER, SELFPAY | PROVIDERS: PCP Nurse Practitioner; Visit Provider Specialist | DX: G43.709 Chronic migraine without aura, not intractable, without status migrainosus (principal) | CPT/HCPCS: 64615; J0585 ==

== ENCOUNTER → 2023-08-03 15:14 | Outpatient (BNVA) | payer OTHER, SELFPAY | PROVIDERS: PCP Nurse Practitioner; Visit Provider Nurse Practitioner | DX: M19.011 Primary osteoarthritis, right shoulder | CPT/HCPCS: 20610; 99213; J2795; J3301; J8540 ==

== ENCOUNTER 2023-08-22 09:33 | Emergency (ER) | payer OTHER, SELFPAY ==
[2023-08-22 09:47] VITALS: BP 122/79; PULSE 81; RESP 16; TEMP 36.9; O2SAT 96; BMI 31.1
--- NOTE | 2023-08-22 10:50 | XRR_ITS ---
PROCEDURE INFORMATION: Exam: XR Chest Exam date and time: 08/22/2023 11:14 AM Age: 48 years old Clinical indication: Shortness of breath; Additional info: SOB TECHNIQUE: Imaging protocol: Radiologic exam of the chest. Views: 1 view. COMPARISON: CR XR chest 1V portable [id number] 04/13/2022 4:12 PM FINDINGS: Tubes, catheters and devices: Unchanged neurostimulator hardware with leads terminating in the midthoracic level. Lungs: Unremarkable. No consolidation. Pleural spaces: Unremarkable. No pleural effusion. No pneumothorax. Heart/Mediastinum: Unremarkable. No cardiomegaly. Bones/joints: Unremarkable. XR/XR chest 1V portable [id number] IMPRESSION: No acute findings.
--- NOTE | 2023-08-22 11:33 | ED_ITS ---
HPI - COVID 2 General: Chief Complaint: COVID symptoms Stated Complaint: sob,weakness,covid+ Time Seen by Provider: 08/22/23 11:15 Source: patient Mode of arrival: ambulatory Limitations: no limitations History of Present Illness: 48-year-old female states that over the last 4 to 5 days she has been having body aches sore throat cough fever also loss of taste. States she took a home COVID test yesterday that was positive. She has had no vomiting. Patient here is not hypoxic she is in no distress here. She denies any worsening proving factors. COVID 19 common symptoms: positive fever(s), non-productive cough, body aches and throat pain; negative chills, dyspnea, headache(s), nausea, vomiting or diarrhea COVID 19 other sytmptoms: negative chest pain COVID Results: 2 SARS-CoV-2 (PCR) Not detected (NOT DETECT) 04/13/22 16:45 Coronavirus Type 229E (PCR) Not detected (NOT DETECT) 04/13/22 16:45 Review of Systems 2 Const: Reports: fever(s) and body aches; Denies: chills or change in appetite Eyes: Denies: blurry vision or eye discomfort ENMT: Reports: throat pain; Denies: dental pain Card: Denies: chest pain Resp: Reports: non-productive cough; Denies: dyspnea GI: Denies: abdominal pain, nausea, vomiting or diarrhea : Denies: dysuria Musc: Denies: neck pain or back pain Skin/Breast: Denies: rash Neuro: Denies: headache(s) PFSH ED 2 PFSH: Medical History Tremor Nightmares Noncompliance with medication regimen Alcohol use disorder Obstructive sleep apnea untreated Adverse drug effect Nicotine dependence, cigarettes, uncomplicated Neurogenic bladder Bipolar 2 disorder Hyperlipidemia Hypothyroidism IBS (irritable bowel syndrome) Insomnia Panic disorder PUD (peptic ulcer disease) PTSD (post-traumatic stress disorder) Tobacco use Fibromyalgia Psychiatric care Recurrent UTI Mixed stress and urge urinary incontinence Chronic migraine without aura, intractable, with status migrainosus Spondylolisthesis, acquired Cervical disc disorder with myelopathy of mid-cervical region DJD (degenerative joint disease) DDD (degenerative disc disease) COPD (chronic obstructive pulmonary disease) Cancer Surgical History H/O total cystectomy Hx of cataract extraction Hx of partial cystectomy History of hysterectomy History of appendectomy History of foot surgery Left foot. Five (5) surgeries. Family History Grandmother Cancer Father , IN HIS 50'S Hypertension Mother , AT 42 Heart disease Psychiatric illness CHF (congestive heart failure) Brother Heart disease Social History Smoking and tobacco/nicotine status: current every day tobacco/nicotine user cigarettes Packs smoked per day: 1 Years cigarettes smoked: 32 Alcohol intake: never Substance/Drug Use: current Substance/Drug use frequency: daily Other substance/drug use details: Medical marijuana Marital status: Legally Current occupational status: retired and disabled Physical Exam 2 Const: COMMON NORMALS: no acute distress, patient oriented x3 and healthy appearing HENMT: COMMON NORMALS: normocephalic and atraumatic HEAD & SCALP: n ormocephalic and atraumatic Eye: COMMON NORMALS: Equal, round and reactive pupils present and EOMs intact bilaterally PUPIL: Yes Equal, round and reactive pupils present Neck/C-Spine: COMMON NORMALS: full ROM and supple Chest: COMMONS NORMALS: normal inspection of the chest and normal palpation of entire chest wall Resp: COMMON NORMALS: normal respiratory effort, No retractions, No use of accessory muscles and clear to auscultation bilaterally AUSCULTATION: clear to auscultation bilaterally Cardio: COMMON NORMALS: regular rate, regular rhythm and No murmurs present (Cardio) RATE: regular rate RHYTHM: regular rhythm GI: COMMON NORMALS: Normal to inspection, nondistended, normoactive bowel sounds present, Soft to palpation, non-tender and no masses PALPATION: Yes Soft to palpation Extremity: COMMON NORMALS: normal to inspection and full ROM Neuro: COMMON NORMALS: patient oriented x3, moves all extremities and no focal motor deficits Psych: COMMON NORMALS: mental status grossly normal, Normal thought process present and cooperative THOUGHT PROCESS: Normal thought process present Skin: COMMON NORMALS: no rashes or lesions noted and no wounds GENERAL SKIN EXAM: no rashes or lesions noted Course 2 Vital Signs: Vital signs: Vital Signs Temperature 98.5 F 08/22/23 09:47 Pulse Rate 67 08/22/23 12:03 Respiratory Rate 16 08/22/23 09:47 Blood Pressure 125/82 08/22/23 12:03 Pulse Oximetry 96 08/22/23 12:03 Oxygen Delivery Me thod Room Air 08/22/23 12:03 MDM - COVID Medical Decision Making Patient presents here with COVID-like symptoms x-ray blood work here are normal she is in no distress pulse ox is normal patient stable for discharge she is to follow-up PCP and return if worsening. Medical Records I reviewed the patient's medical records. Lab Data I reviewed the patient's lab results. 08/22/23 11:48 08/22/23 11:48 Radiology Impressions Chest X-Ray 08/22/23 10:50 IMPRESSION: No acute findings. Laboratory Results WBC 7.65 10^3/uL (3.29-11.43) 08/22/23 11:48 RBC 4.82 10^6/uL (3.85-5.65) 08/22/23 11:48 Hgb 15.10 g/dL (11.27-16.99) 08/22/23 11:48 Hct 44.5 % (36-47) 08/22/23 11:48 MCV 92.3 fl (85-98) 08/22/23 11:48 MCH 31.3 pg (27-33) 08/22/23 11:48 MCHC 33.9 g/dL (30-55) 08/22/23 11:48 RDW 13.0 % (12.1-15.1) 08/22/23 11:48 Plt Count 301 10^3/cmm (157-399) 08/22/23 11:48 MPV 8.2 fL (7.4-10.4) 08/22/23 11:48 Neut % (Auto) 60.4 % 08/22/23 11:48 Lymph % (Auto) 31.5 % 08/22/23 11:48 Sheridan % (Auto) 6.7 % 08/22/23 11:48 Eos % (Auto) 0.7 % 08/22/23 11:48 Baso % (Auto) 0.4 % 08/22/23 11:48 Neut # (Auto) 4.63 10^3/uL (1.8-7.7) 08/22/23 11:48 Lymph # (Auto) 2.4 10^3/uL (0.8-4.8) 08/22/23 11:48 Sheridan # (Auto) 0.5 10^3/uL (0.2-0.9) 08/22/23 11:48 Eos # (Auto) 0.1 10^3/uL (0.0-0.8) 08/22/23 11:48 Baso # (Auto) 0.0 10^3/uL (0.0-0.1) 08/22/23 11:48 Nucleated RBC % (auto) 0 % 08/22/23 11:48 Nucleated RBCs # 0.0 /100WBC 08/22/23 11:48 Sodium 136 mmol/L (136-145) 08/22/23 11:48 Potassium 4.5 mmol/L (3.5-5.1) 08/22/23 11:48 Chloride 99 mmol/L (98-107) 08/22/23 11:48 Carbon Dioxide 27 mmol/L (22-29) 08/22/23 11:48 Anion Gap 14.5 (5-19) 08/22/23 11:48 BUN 10 mg/dL (6-20) 08/22/23 11:48 Creatinine 0.7 mg/dL (0.5-0.9) 08/22/23 11:48 GFR Calculation 88.6 mL/min (90-130) L 08/22/23 11:48 Glucose 77 mg/dL (65-115) 08/22/23 11:48 Calculated Osmolality 280 mOsm/kg (285-295) L 08/22/23 11:48 Calcium 10.3 mg/dL (8.5-10.5) 08/22/23 11:48 Total Bilirubin 0.3 mg/dL (0.15-1.2) 08/22/23 11:48 AST 15 U/L (0-32) 08/22/23 11:48 ALT 19 U/L (0-33) 08/22/23 11:48 Alkaline Phosphatase 79 U/L (35-105) 08/22/23 11:48 Total Protein 7.7 g/dL (6.6-8.7) 08/22/23 11:48 Albumin 4.7 g/dL (3.5-5.2) 08/22/23 11:48 Globulin 3.0 g/dL (1.3-4.6) 08/22/23 11:48 2 SARS-CoV-2 (PCR) Not detected (NOT DETECT) 04/13/22 16:45 Coronavirus Type 229E (PCR) Not detected (NOT DETECT) 04/13/22 16:45 All radiology interpretation(s) finalized by discharge Discharge Plan Discharge Patient Disposition: Home Clinical Impression: Suspected severe acute respiratory syndrome coronavirus 2 (SARS-CoV-2) infection Condition: Stable Prescriptions: No Action albuterol sulfate 0.63 mg/3 mL solution for nebulization 0.63 mg INHALATION QID PRN (Reason: Shortness Of Breath) albuterol sulfate 90 mcg/actuation aerosol powdr breath activated 2 inh INHALATION Q6H PRN medical marijuana See Rx Instructions inhalation .COMPLEX Rx Instructions: inhalation 4 oz. monthly; (DME) Spinal cord stimulator 0 .Route .MEDSUPPLY minoxidil 5 % foam 1 ea topical .QD Qty: 60 6RF Rx Instructions: Apply as directed on package methocarbamol 500 mg tablet 1,000 mg PO QID meloxicam 7.5 mg tablet 15 mg PO .AM atorvastatin 10 mg tablet 80 mg PO .HS Rx Instructions: 40 mg 2 po at HS azelastine 137 mcg (0.1 %) aerosol,spray 1 spray intranasal DAILY fluticasone propionate 50 mcg/actuation spray,suspension 1 spray intranasal DAILY fluticasone propion-salmeterol 250-50 mcg/dose blister with device 1 inh inhalation BID prazosin 5 mg capsule 5 - 10 mg PO .HS Qty: 60 3RF lamotrigine 200 mg tablet 200 mg PO .HS Qty: 30 3RF ziprasidone HCl 80 mg capsule 80 mg PO .at bedtime Qty: 30 3RF Rx Instructions: give with food (meal/snack) lithium carbonate 300 mg capsule 300 mg PO BID Qty: 60 3RF loratadine [Allergy Relief (loratadine)] 10 mg tablet 10 mg PO DAILY Discharge Orders: Discharge ED (Routine); Ordered 08/22/23 Ordered By: Montez Kevin Referrals: Yoli Sousa FNP [Primary Care Provider] - Discharge Diet: Advance as tolerated Discharge Activity: Resume usual activity Patient Instructions: COVID-19 (Coronavirus Disease 2019) (ED) Coding Level of Care Code ED 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
[2023-08-22] MEDS: sodium chloride 0.9% 1,000 ML 999 ML IV (11:40)
[2023-08-22] MEDS: dexamethasone 10 mg/mL INJ IVP (11:40)
[2023-08-22 11:43] VITALS: BP 128/84; PULSE 68; O2SAT 97
[2023-08-22 11:53] VITALS: O2SAT 97
[2023-08-22 12:01] LABS: Basophils % 0.4 %; Eosinophils # 0.1 10^3/uL (0.0-0.8); Eosinophils % 0.7 %; Hematocrit 44.5 % (36-47); Lymphocytes # 2.4 10^3/uL (0.8-4.8); Lymphocytes % 31.5 %; Mean Corpuscular HGB Conc 33.9 g/dL (30-55); Mean Corpuscular Hemoglobin 31.3 pg (27-33); Mean Corpuscular Volume 92.3 fl (85-98); Mean Platelet Volume 8.2 fL (7.4-10.4); Monocytes # 0.5 10^3/uL (0.2-0.9); Monocytes % 6.7 %; Neutrophils # 4.63 10^3/uL (1.8-7.7); Neutrophils % 60.4 %; Nucleated Red Blood Cells % 0 %; Platelet Count 301 10^3/cmm (157-399); Red Blood Count 4.82 10^6/uL (3.85-5.65); White Blood Count 7.65 10^3/uL (3.29-11.43)
[2023-08-22 12:03] VITALS: BP 125/82; PULSE 67; O2SAT 96
[2023-08-22 12:19] LABS: Alanine Aminotransferase 19 U/L (0-33); Albumin Level 4.7 g/dL (3.5-5.2); Alkaline Phosphatase 79 U/L (35-105); Anion Gap 14.5 (5-19); Aspartate Amino Transferase 15 U/L (0-32); Blood Urea Nitrogen 10 mg/dL (6-20); Calcium 10.3 mg/dL (8.5-10.5); Carbon Dioxide 27 mmol/L (22-29); Chloride 99 mmol/L (98-107); Creatinine Clr Calc Pharmacy 92.4442; Glomerular Filtration Rate 88.6 mL/min (90-130); Glucose 77 mg/dL (65-115); Osmolality Calculated 280 mOsm/kg (285-295); Potassium 4.5 mmol/L (3.5-5.1); Sodium 136 mmol/L (136-145); Total Bilirubin 0.3 mg/dL (0.15-1.2); Total Protein 7.7 g/dL (6.6-8.7)
[2023-08-22 12:36] VITALS: BP 123/83; PULSE 78; O2SAT 98
[2023-08-22 13:52] LABS: Adenovirus Not Detected (NOT DETECT); Chlamydia Pneumoniae Not Detected (NOT DETECT); Coronavirus 229E,HKU1,NL63,OC4 Not Detected (NOT DETECT); Human Metapneumovirus Not Detected (NOT DETECT); Human Rhinovirus/Enterovirus Not Detected (NOT DETECT); Influenza A Not Detected (NOT DETECT); Influenza A H1 Not Detected (NOT DETECT); Influenza A H1-2009 Not Detected (NOT DETECT); Influenza A H3 Not Detected (NOT DETECT); Influenza B Not Detected (NOT DETECT); Mycoplasma Pneumoniae Not Detected (NOT DETECT); Parainfluenza Virus Type 1 Not Detected (NOT DETECT); Parainfluenza Virus Type 2 Not Detected (NOT DETECT); Parainfluenza Virus Type 3 Not Detected (NOT DETECT); Parainfluenza Virus Type 4 Not Detected (NOT DETECT); Respiratory Syncytial Virus A Not Detected (NOT DETECT); Respiratory Syncytial Virus B Not Detected (NOT DETECT)
[2023-08-22 13:54] LABS: SARS-COV-2 Detected (NOT DETECT)
== END 2023-08-22 12:38 | disposition home or self-care (01) ==
PROVIDERS: Emergency Provider Emergency Medicine; PCP Nurse Practitioner
DX: Z11.52 Encounter for screening for COVID-19 (principal); F17.210 Nicotine dependence, cigarettes, uncomplicated; E78.5 Hyperlipidemia, unspecified; J44.9 Chronic obstructive pulmonary disease, unspecified; Z85.9 Personal history of malignant neoplasm, unspecified
CPT/HCPCS: 71045; 80053; 85025; 87635; 96361; 96374; 99284; J1100; J7030

== ENCOUNTER → 2023-09-26 13:33 | Outpatient (BNVA) | payer OTHER, SELFPAY | PROVIDERS: PCP Nurse Practitioner; Visit Provider Specialist | DX: M25.551 Pain in right hip | CPT/HCPCS: 73502; 99214 ==

== ENCOUNTER → 2023-10-05 14:20 | Outpatient (BNVA) | payer OTHER, SELFPAY | PROVIDERS: PCP Nurse Practitioner; Visit Provider Specialist | DX: M25.561 Pain in right knee; M17.11 Unilateral primary osteoarthritis, right knee | CPT/HCPCS: 73560; 73565; 99214 ==

== ENCOUNTER → 2023-10-20 09:55 | Outpatient (BNVA) | payer OTHER, SELFPAY | PROVIDERS: PCP Nurse Practitioner; Visit Provider Specialist | DX: M50.020 Cervical disc disorder with myelopathy, mid-cervical region, unspecified level (principal); G43.711 Chronic migraine without aura, intractable, with status migrainosus; M17.12 Unilateral primary osteoarthritis, left knee; Z71.89 Other specified counseling | CPT/HCPCS: 20610; 64615; 99213; J0585; J1100; J2795; J3301 ==

== ENCOUNTER → 2023-11-11 08:53 | Outpatient (BNVA) | payer OTHER, SELFPAY | PROVIDERS: PCP Nurse Practitioner; Visit Provider Specialist | DX: M19.011 Primary osteoarthritis, right shoulder (principal); M75.01 Adhesive capsulitis of right shoulder | CPT/HCPCS: 20610; J1100; J2795; J3301 ==

== ENCOUNTER 2023-11-22 13:50 | Outpatient (CLI) | payer OTHER, SELFPAY ==
--- NOTE | 2023-11-22 13:54 | CT_ITS ---
WS: [id number] CT RIGHT KNEE ARTHROGRAM HISTORY: right knee pain Technique: All CT scans at [facility] use at least one of these dose optimization techniques: automated exposure control; mA and/or kV adjustment per patient size (includes targeted exams where dose is matched to clinical indication); or iterative reconstruction. DLP: 465.51 mGy.cm COMPARISON: 10/05/2023 radiograph Arthrogram is performed under fluoroscopy. There is good contrast opacification of the knee joint. No fractures or dislocation. Thick bandlike projections in the joint effusion consistent with plica. Very minimal narrowing of the patellofemoral joint space. There are multiple small cartilaginous defe cts along the patellar cartilage, greatest involving the lateral patellar facet. No full-thickness ca rtilage defects. Very mild narrowing of the medial compartment. There is a meniscal tear involving the posterior horn. Small caliber posterior meniscus. Tear is greatest towards the meniscal root. Anterior horn is casandra l. Very mild chondromalacia. Lateral compartment: No meniscal tear. Very mild thinning and fissuring of the cartilage. No Mendoza's cyst identified. IMPRESSION: 1. Complex tear posterior horn medial meniscus towards the meniscal root. 2. Moderate chondromalacia involving the patella, greatest along the lateral patellar facet. No full -thickness defects. 3. Mild narrowing of the medial and lateral compartments. 4. Very mild chondromalacia in the lateral and medial compartments.
--- NOTE | 2023-11-22 14:00 | IR_ITS ---
WS: [id number] RIGHT KNEE ARTHROGRAM (FLUOROSCOPY) RIGHT knee arthrogram was performed in fluoroscopy prior to CT evaluation. HISTORY: right knee pain COMPARISON: None. FLUOROSCOPY TIME: 0min [id number] # of spot films: 2 Procedure, risks and complications were explained to the patient. Complications include but not limit ed to bleeding, infection and contrast reaction. Current medications are reviewed. Skin is cleansed with ChloraPrep. Skin is anesthetized with 1% buffered lidocaine. 22-gauge needle is inserted into the patellofemoral joint. Approximately 30 cc of Omnipaque 240 injected without compli cation. Patient will proceed to CT evaluation immediately. No complications were encountered. Patient is instructed to watch for post procedure infection or ble eding. Patient is also instructed to contact the radiology department with any concerns. IMPRESSION: Uncomplicated RIGHT knee joint joint injection prior to CT arthrogram.
== END 2023-11-22 13:51 | disposition home or self-care (01) ==
LOC: RAD 13:51
PROVIDERS: PCP Nurse Practitioner; Visit Provider Specialist
DX: S83.231A Complex tear of medial meniscus, current injury, right knee, initial encounter (principal); X58.XXXA Exposure to other specified factors, initial encounter; M22.41 Chondromalacia patellae, right knee
CPT/HCPCS: 27369; 73701; 77002; Q9966

== ENCOUNTER → 2023-12-22 09:17 | Outpatient (BNVA) | payer OTHER, SELFPAY | PROVIDERS: PCP Nurse Practitioner; Visit Provider Dermatology | DX: L64.8 Other androgenic alopecia (principal); L60.8 Other nail disorders | CPT/HCPCS: 99214 ==

== ENCOUNTER → 2024-01-19 10:22 | Outpatient (BNVA) | payer OTHER, SELFPAY | PROVIDERS: PCP Nurse Practitioner; Visit Provider Specialist | DX: G43.711 Chronic migraine without aura, intractable, with status migrainosus (principal); M50.020 Cervical disc disorder with myelopathy, mid-cervical region, unspecified level | CPT/HCPCS: 64615; J0585 ==

== ENCOUNTER 2024-01-26 12:54 | Outpatient (CLI) | payer OTHER, SELFPAY ==
--- NOTE | 2024-01-26 13:00 | CT_ITS ---
WS: [id number] CT CERVICAL SPINE HISTORY: CSPINE PAIN TECHNIQUE: Contiguous 2.0 mm axial imaging performed through the entire cervical spine. Sagittal and coronal reformats also performed. All CT scans at [facility] use at least one of these dose o ptimization techniques: automated exposure control; mA and/or kV adjustment per patient size (include s targeted exams where dose is matched to clinical indication); or iterative reconstruction. DLP: 157.47 mGy.cm COMPARISON: 07/05/2023 C2 and C3 anterolisthesis by 2 mm is similar to the prior study. No fractures. Facet joints are casandra lly aligned. Osseous fusion across the C2-3 facets. This fusion is new since 2022. Mild RIGHT scolios is with curvature. C2-C3: Bilateral facet arthritis, LEFT greater than RIGHT. No stenosis. C3-C4: Osteophytic ridging and facet joint arthritis. Mild LEFT foraminal stenosis and a small centra l disc protrusion. C4-C5: Mild facet arthritis. No stenosis. C5-C6: Mild osteophytic ridging and facet arthritis. No stenosis. C6-C7: Mild osteophytic ridging with mild foraminal narrowing and facet arthritis. C7-T1: No stenosis. Mild facet arthritis. Soft tissues are normal. Lung apices are clear. CT/CT cervical spin wo con* [id number] IMPRESSION: 1. Stable C2 and C3 anterolisthesis by 2 mm since 07/05/2023. 2. New osseous fusion across the facet joints of C2-3. 3. Multilevel mild facet joint arthritis and foraminal narrowing as above. No significant progression since the prior study. No central stenosis.
== END 2024-01-26 12:55 | disposition home or self-care (01) ==
LOC: RAD 12:54
PROVIDERS: PCP Nurse Practitioner; Visit Provider Nurse Practitioner
DX: M47.812 Spondylosis without myelopathy or radiculopathy, cervical region (principal); M43.12 Spondylolisthesis, cervical region
CPT/HCPCS: 72125

== ENCOUNTER → 2024-02-03 08:47 | Outpatient (BNVA) | payer OTHER, SELFPAY | PROVIDERS: PCP Nurse Practitioner; Visit Provider Specialist | DX: M17.12 Unilateral primary osteoarthritis, left knee (principal); Z71.89 Other specified counseling | CPT/HCPCS: 20610; J1100; J2795; J3301 ==

== ENCOUNTER → 2024-02-10 08:01 | Outpatient (BNVA) | payer OTHER, SELFPAY | PROVIDERS: PCP Nurse Practitioner; Visit Provider Specialist | DX: M25.511 Pain in right shoulder (principal); M75.01 Adhesive capsulitis of right shoulder | CPT/HCPCS: 20610; J1100; J2795; J3301 ==

== ENCOUNTER → 2024-02-28 09:54 | Outpatient (BNVA) | payer OTHER, SELFPAY | PROVIDERS: PCP Nurse Practitioner; Visit Provider Podiatrist Foot & Ankle Surgery | DX: M19.071 Primary osteoarthritis, right ankle and foot; M25.371 Other instability, right ankle | CPT/HCPCS: 73630; 99203 ==

== ENCOUNTER → 2024-03-14 10:16 | Outpatient (BNVA) | payer OTHER, SELFPAY | PROVIDERS: PCP Nurse Practitioner; Visit Provider Specialist | DX: M25.561 Pain in right knee; G89.29 Other chronic pain; M17.11 Unilateral primary osteoarthritis, right knee | CPT/HCPCS: 20610; 99214; J1100; J2795; J3301 ==

== ENCOUNTER → 2024-04-10 10:52 | Outpatient (BNVA) | payer OTHER, SELFPAY | PROVIDERS: PCP Nurse Practitioner; Visit Provider Podiatrist Foot & Ankle Surgery | DX: M25.371 Other instability, right ankle; M19.071 Primary osteoarthritis, right ankle and foot | CPT/HCPCS: 99213 ==

== ENCOUNTER → 2024-05-18 07:56 | Outpatient (BNVA) | payer OTHER, SELFPAY | PROVIDERS: PCP Nurse Practitioner; Visit Provider Specialist | DX: M19.011 Primary osteoarthritis, right shoulder (principal); Z71.89 Other specified counseling | CPT/HCPCS: 20610; J1100; J2795; J3301 ==

== ENCOUNTER → 2024-06-15 08:50 | Outpatient (BNVA) | payer OTHER, SELFPAY | PROVIDERS: PCP Nurse Practitioner; Visit Provider Specialist | DX: M17.11 Unilateral primary osteoarthritis, right knee (principal) | CPT/HCPCS: 20610; J1100; J2795; J3301 ==

== ENCOUNTER 2024-08-23 09:38 | Outpatient (CLI) | payer OTHER, SELFPAY ==
--- NOTE | 2024-08-23 09:40 | MM_ITS ---
WS: [id number] BILATERAL SCREENING DIGITAL TOMOSYNTHESIS MAMMOGRAM WITH CAD HISTORY: SCREENING COMPARISON: 07/05/2023, 11/11/2020 Bilateral CC and MLO views with tomosynthesis and synthetic mammography submitted. Computer aided det ection analyzed. Breast composition: There are scattered areas of fibroglandular density. No suspicious masses, microc alcifications or architectural distortion. There are a few benign calcifications in each breast. No d istortion. This examination is compromised as neither pectoralis muscle is included. As per print developer's notes difficulty positioning patient. MM/MM scr tomosynthesis [id number] IMPRESSION: BI-RADS: 2 - Benign. FOLLOW UP: 1 Year Follow-up
== END 2024-08-23 09:39 | disposition home or self-care (01) ==
LOC: MOBLMAM 09:41
PROVIDERS: PCP Nurse Practitioner; Visit Provider Nurse Practitioner
DX: Z12.31 Encounter for screening mammogram for malignant neoplasm of breast (principal); R92.323 Mammographic fibroglandular density, bilateral breasts; R92.1 Mammographic calcification found on diagnostic imaging of breast
CPT/HCPCS: 77063; 77067

== ENCOUNTER 2024-08-30 08:03 | Outpatient (CLI) | payer OTHER, SELFPAY ==
--- NOTE | 2024-08-30 08:06 | USCV_ITS ---
Keyanna Thomas Age: 49 Gender: F : 1975 Exam Date: 08/30/2024 08:20 Ordering Phys: Yoli Sousa Technologist: [email or web address] [place] [facility] [place]: dizziness,fatigue Risk Factors: Previous Vascular Surgery: Right Brachial BP: / Left Brachial BP: / Right Left Velocity (cm/s) Spectral Plaque Velocity (cm/s) Spectral Plaque Syst/Diast Broadening Syst/Diast Broadening 75.00/ 19.30 Prox CCA 79.50 / 21.90 67.20/ 21.90 Mid CCA 69.50 / 25.90 50.40/ 18.00 Distal CCA 62.40 / 21.90 37.40/ 18.70 Prox ICA 33.60 / 13.40 59.70/ 28.90 Mid ICA 49.70 / 19.50 50.60/ 23.90 Distal ICA 65.20 / 27.00 63.10 ECA 65.00 1.20 ICA/CCA 1.00 Antegrade Vertebral Antegrade 29.40/ 8.30 cm/s 33.00/ 15.50 cm/s Tri Subclavian Tri 44.50 93.70 FINDINGS Comparison: none available. No significant elevation of systolic or diastolic velocities. Waveforms are normal. No significant amount of calcified plaque or intimal thickening identified. CONCLUSIONS No change seen from prior study. Bilateral ICA stenosis less than 50%. Dr. Kayla Soto DO (Electronically Signed) Final Date: 30 August 2024 10:23 S
--- NOTE | 2024-08-30 08:23 | CTR_ITS ---
PROCEDURE INFORMATION: Exam: CT Right Lower Extremity, Hip Exam date and time: 08/30/2024 8:56 AM Age: 49 years old Clinical indication: Pain; Hip; Right; Additional info: Pain, osteoarthritis of right hip TECHNIQUE: Imaging protocol: CT of the right lower extremity without and with intravenous contrast was performed. Exam focused on the hip. Radiation optimization: All CT scans at this facility use at least one of these dose optimization techniques: automated exposure control; mA and/or kV adjustment per patient size (includes targeted exams where dose is matched to clinical indication); or iterative reconstruction. Contrast material: OMNI 350; Contrast volume: 100 ml; Contrast route: INTRAVENOUS (IV); COMPARISON: CR XR hip RT 2-3V wo/w pel* [id number] 09/26/2023 1:40 PM RADIATION DOSE METRICS: Total DLP (mGy-cm): 749.3 FINDINGS: Bones/joints: Alignment is normal. Joint spaces are preserved. Small anterolateral acetabular osteophytes. No femoral osteophytes. No acute fracture. No significant joint effusion. Soft tissues: Moderate atrophy of the right gluteus minimus muscle. CT/CT hip RT wo/w con [id number] IMPRESSION: 1. No acute findings. 2. Mild osteoarthritis at the right hip. 3. Moderate atrophy of the right gluteus minimus muscle.
[2024-08-30] MEDS: iohexol 350 mg/mL 500 mL Btl (per mL) IV (09:15)
== END 2024-08-30 08:04 | disposition home or self-care (01) ==
LOC: RAD 08:04
PROVIDERS: PCP Nurse Practitioner; Visit Provider Nurse Practitioner
DX: I65.22 Occlusion and stenosis of left carotid artery; M62.551 Muscle wasting and atrophy, not elsewhere classified, right thigh
CPT/HCPCS: 73702; 93880

== ENCOUNTER → 2024-08-31 08:04 | Outpatient (BNVA) | payer OTHER, SELFPAY | PROVIDERS: PCP Nurse Practitioner; Visit Provider Specialist | DX: G43.711 Chronic migraine without aura, intractable, with status migrainosus; M50.020 Cervical disc disorder with myelopathy, mid-cervical region, unspecified level; M19.011 Primary osteoarthritis, right shoulder; Z71.89 Other specified counseling | CPT/HCPCS: 20610; 64615; J0585; J1100; J2795; J3301 ==

== ENCOUNTER → 2024-09-07 07:58 | Outpatient (BNVA) | payer OTHER, SELFPAY | PROVIDERS: PCP Nurse Practitioner; Visit Provider Specialist | DX: M25.561 Pain in right knee (principal); M25.562 Pain in left knee; M17.0 Bilateral primary osteoarthritis of knee; Z71.89 Other specified counseling | CPT/HCPCS: 20610; J1100; J2795; J3301 ==

== ENCOUNTER → 2024-09-26 10:45 | Outpatient (BNVA) | payer OTHER, SELFPAY | PROVIDERS: PCP Nurse Practitioner; Visit Provider Specialist | DX: M16.11 Unilateral primary osteoarthritis, right hip (principal) | CPT/HCPCS: 99214 ==

== ENCOUNTER → 2024-11-30 09:50 | Outpatient (BNVA) | payer OTHER, SELFPAY | PROVIDERS: PCP Nurse Practitioner; Visit Provider Specialist | DX: R41.3 Other amnesia (principal); G43.711 Chronic migraine without aura, intractable, with status migrainosus | CPT/HCPCS: 64615; J0585; J9999 ==

== ENCOUNTER 2024-12-04 09:55 | Outpatient (CLI) | payer OTHER, SELFPAY ==
[2024-12-04 11:31] LABS: Vitamin B12 776 pg/mL (232-1245)
== END 2024-12-04 09:56 | disposition home or self-care (01) ==
LOC: LAB 09:57
PROVIDERS: PCP Nurse Practitioner; Visit Provider Specialist
DX: G31.84 Mild cognitive impairment of uncertain or unknown etiology (principal)
CPT/HCPCS: 36415; 82542; 82607; 83520

== ENCOUNTER 2024-12-18 05:00 | Outpatient (RCR) | payer OTHER, SELFPAY | END 2025-01-16 23:59 | disposition home or self-care (01) | LOC: MPT 05:00 | PROVIDERS: PCP Nurse Practitioner; Visit Provider Nurse Practitioner | DX: M25.551 Pain in right hip (principal); M25.552 Pain in left hip | CPT/HCPCS: 97110; 97162 ==

== ENCOUNTER → 2025-01-04 08:00 | Outpatient (BNVA) | payer OTHER, SELFPAY | PROVIDERS: PCP Nurse Practitioner; Visit Provider Specialist | DX: M19.011 Primary osteoarthritis, right shoulder (principal); Z71.89 Other specified counseling | CPT/HCPCS: 20610; J1100; J2795; J3301; J9999 ==

== ENCOUNTER → 2025-01-09 10:47 | Outpatient (BNVA) | payer OTHER, SELFPAY | PROVIDERS: PCP Nurse Practitioner; Visit Provider Specialist | DX: M70.62 Trochanteric bursitis, left hip (principal) | CPT/HCPCS: 20610; 73502; 99214; J1100; J2795; J3301; J9999 ==

== ENCOUNTER 2025-01-17 05:00 | Outpatient (RCR) | payer OTHER, SELFPAY | END 2025-02-16 23:59 | disposition home or self-care (01) | LOC: MPT 05:00 | PROVIDERS: PCP Nurse Practitioner; Visit Provider Nurse Practitioner | DX: M25.551 Pain in right hip (principal) | CPT/HCPCS: 96116; 97110 ==

== ENCOUNTER → 2025-02-07 11:24 | Outpatient (BNVA) | payer OTHER, SELFPAY | PROVIDERS: PCP Nurse Practitioner; Visit Provider Specialist | DX: G31.84 Mild cognitive impairment of uncertain or unknown etiology (principal); G43.711 Chronic migraine without aura, intractable, with status migrainosus | CPT/HCPCS: 96116; 99214 ==

== ENCOUNTER → 2025-03-01 08:38 | Outpatient (BNVA) | payer OTHER, SELFPAY | PROVIDERS: PCP Nurse Practitioner; Visit Provider Specialist | DX: M17.0 Bilateral primary osteoarthritis of knee (principal) | CPT/HCPCS: 20610; J1100; J2795; J3301; J9999 ==

== ENCOUNTER → 2025-03-05 11:00 | Outpatient (BNVA) | payer OTHER, SELFPAY | PROVIDERS: PCP Nurse Practitioner; Visit Provider Nurse Practitioner Family | DX: L64.8 Other androgenic alopecia (principal); L82.1 Other seborrheic keratosis; L73.8 Other specified follicular disorders; D18.01 Hemangioma of skin and subcutaneous tissue | CPT/HCPCS: 99214 ==

== ENCOUNTER → 2025-03-28 09:34 | Outpatient (BNVA) | payer OTHER, SELFPAY | PROVIDERS: PCP Nurse Practitioner; Visit Provider Specialist | DX: G43.711 Chronic migraine without aura, intractable, with status migrainosus (principal); G31.84 Mild cognitive impairment of uncertain or unknown etiology | CPT/HCPCS: 64615; J0585; J9999 ==

== ENCOUNTER → 2025-03-29 09:30 | Outpatient (BNVA) | payer OTHER, SELFPAY | PROVIDERS: Visit Provider Specialist | DX: M17.0 Bilateral primary osteoarthritis of knee (principal) | CPT/HCPCS: 20610; J1100; J2795; J3301; J9999 ==

== ENCOUNTER 2025-05-23 12:52 | Outpatient (CLI) | payer OTHER, SELFPAY | END 2025-05-23 12:53 | disposition home or self-care (01) | LOC: SLEEP 12:53 | PROVIDERS: PCP Nurse Practitioner; Referring Provider Specialist; Visit Provider Internal Medicine Pulmonary Disease | DX: G47.33 Obstructive sleep apnea (adult) (pediatric) (principal); G47.10 Hypersomnia, unspecified; G31.84 Mild cognitive impairment of uncertain or unknown etiology | CPT/HCPCS: G0399 ==

== ENCOUNTER → 2025-06-14 09:08 | Outpatient (BNVA) | payer OTHER, SELFPAY | PROVIDERS: PCP Nurse Practitioner; Visit Provider Specialist | DX: M17.0 Bilateral primary osteoarthritis of knee (principal) | CPT/HCPCS: 20610; J1100; J2795; J3301; J9999 ==

== ENCOUNTER 2025-07-04 11:37 | Outpatient (CLI) | payer OTHER, SELFPAY ==
--- NOTE | 2025-07-04 11:41 | XR_ITS ---
WS: [id number] XR cervical spine 3V* [id number] REASON FOR EXAM: NECK PAIN FINDINGS: Mild straightening of the normal lordosis. Mild anterior subluxation of the cervical spine. Plate and screw fixation with interbody fusion device at C3-C4. No significant vertebral body lesion or compression deformity. Mild narrowing of the C6-C7 disc space with mild endplate sclerosis and minimal osteophytosis. In the remainder of the cervical spine the disc spaces are intact with minimal narrowing and minimal osteophytosis. No significant listhesis. Moderate degenerative arthropathy in the facet joints C3-C7. XR/XR cervical spine 3V* [id number] IMPRESSION: Anterior fusion and mild degenerative spondylosis as above.
== END 2025-07-04 11:38 | disposition home or self-care (01) ==
LOC: RAD 11:39
PROVIDERS: PCP Nurse Practitioner; Visit Provider Nurse Practitioner Family
DX: G43.711 Chronic migraine without aura, intractable, with status migrainosus (principal); R29.3 Abnormal posture; S13.100A Subluxation of unspecified cervical vertebrae, initial encounter; X58.XXXA Exposure to other specified factors, initial encounter; M47.812 Spondylosis without myelopathy or radiculopathy, cervical region; M43.22 Fusion of spine, cervical region; Z96.89 Presence of other specified functional implants; Z96.698 Presence of other orthopedic joint implants; M50.323 Other cervical disc degeneration at C6-C7 level; M48.02 Spinal stenosis, cervical region; G47.33 Obstructive sleep apnea (adult) (pediatric); R07.9 Chest pain, unspecified; G31.84 Mild cognitive impairment of uncertain or unknown etiology
CPT/HCPCS: 64615; 72040; 99214; J0585; J9999

== ENCOUNTER → 2025-07-04 11:47 | Outpatient (BNVA) | payer OTHER, SELFPAY | PROVIDERS: PCP Nurse Practitioner; Visit Provider Specialist | DX: G43.711 Chronic migraine without aura, intractable, with status migrainosus (principal); G47.33 Obstructive sleep apnea (adult) (pediatric); R07.9 Chest pain, unspecified; G31.84 Mild cognitive impairment of uncertain or unknown etiology | CPT/HCPCS: 64615; 99214; J0585; J9999 ==

== ENCOUNTER → 2025-07-05 09:24 | Outpatient (BNVA) | payer OTHER, SELFPAY | PROVIDERS: PCP Nurse Practitioner; Visit Provider Specialist | DX: M19.011 Primary osteoarthritis, right shoulder (principal) | CPT/HCPCS: 20610; J1100; J2795; J3301; J9999 ==

== ENCOUNTER → 2025-07-26 14:51 | Outpatient (BNVA) | payer OTHER, SELFPAY | PROVIDERS: PCP Nurse Practitioner; Visit Provider Nurse Practitioner Family | DX: L60.8 Other nail disorders (principal) | CPT/HCPCS: 99213 ==